=== PATIENT | male | born 1945 | race Caucasian/White ===

== ENCOUNTER 2019-01-13 07:08 | Day surgery (SDC) | payer MEDICARE, SELFPAY ==
--- NOTE | 2019-01-11 08:36 | EKG12_ITS ---
Test Reason : PRE-OP Blood Pressure : / mmHG Vent. Rate : 056 BPM Atrial Rate : 056 BPM P-R Int : 166 ms QRS Dur : 094 ms QT Int : 416 ms P-R-T Axes : 037 -11 -04 degrees QTc Int : 401 ms Sinus bradycardia with sinus arrhythmia Otherwise normal ECG Confirmed by BRAXTON OLIVAS, WILLIAN ([id number]), international editorial producer ISAURA ALVAREZ ([id number]) on 01/12/2019 9:16:28 AM Referred By: Jay Copeland Confirmed By:WILLIAN LIMON MD
[2019-01-11 08:43] LABS: Hematocrit 42.7 % (40-54); Hemoglobin 13.9 g/dl (13.0-16.5); Mean Corp Hgb Conc 32.6 g/gl (32-36); Mean Corpuscular Hgb 30.8 pg (27.0-32.0); Mean Corpuscular Volume 94.5 fL (80-94); Mean Platelet Vol. 10.8 fl (6.2-12.0); Platelet Count 194 K/mm3 (150-450); RBC Distribution Width CV 12.3 % (11.6-14.6); RBC Distribution Width SD 41.8 fl (35.1-43.9); Red Blood Count 4.52 M/mm3 (4.6-6.2); Scan Indicated on CBC? Y/N NO; White Blood Count 5.1 K/mm3 (4.4-11.0)
[2019-01-11 09:03] LABS: Hemoglobin A1c 6.9 % (4.2-6.3)
[2019-01-11 09:06] LABS: Anion Gap 6 (5-15); BUN 18 mg/dL (7-18); BUN/Creat Ratio 16.4 RATIO (10-20); Calcium,Total 9.4 mg/dL (8.5-10.1); Chloride 104 mmol/L (98-107); EST Glomerular Filtration Rate 70 mL/min (>60); Est Glom Filt Rate - Afr Amer 85 mL/min (>60); Glucose 151 mg/dL (74-106); Potassium 4.1 mmol/L (3.5-5.1); Sodium Level 139 mmol/L (136-145)
--- NOTE | 2019-01-12 17:01 | HP.PCM_ITS ---
History and Physical Date of Admission: 01/13/19 HISTORY AND PHYSICAL ? Rolando Gonzalez 1945 ? ? REFERRING PHYSICIAN: ??Jovanny Aldana MD ? CHIEF COMPLAINT: ??discuss hernia ? HPI: Rolando is a 73 year old male with a complaint of?a bulge ?and discomfort ?in his?right inguinal region. ?The patient notes discomfort in this area with lifting, coughing and especially occurred after lifting heavy steel out of a truck. ?The symptoms have improved with the fastest few days but he still notes discomfort in his right inguinal area. ? The patient notes no symptoms of bowel obstruction and denies nausea or vomiting. The patient was seen by?his?primary care physician ?who felt the patient has a hernia. ?Rolando was referred for evaluation and treatment. ? The patient is being seen by me today at the request of DrEstephania?JOVANNY ALDANA MD?for my opinion and advice regarding right inguinal hernia. ? ? PAST?MEDICAL?HISTORY PAST MEDICAL HISTORY Diagnosis Date ? Esophageal reflux ? ? Other and unspecified hyperlipidemia ? ? Unspecified asthma(493.90) ? ? ? PAST?SURGICAL?HISTORY PAST SURGICAL HISTORY Procedure Laterality Date ? HIATAL HERNIA REPAIR HX ? ? ? 2004, may ? VASECTOMY ? CURRENT?MEDICATIONS ? Current Outpatient Medications: lisinopril-hydrochlorothiazide (PRINZIDE, ZESTORETIC) 20-25 mg per tablet Take 1 tablet by mouth every morning. atorvastatin (LIPITOR) 10 mg tablet Take 1 tablet by mouth once daily. metFORMIN ER (GLUCOPHAGE XR) 500 mg 24 hr tablet Take 1 tablet by mouth twice daily. Please take 1000 at night and 500 mgs in the morning. fluticasone-salmeterol (ADVAIR DISKUS) 100-50 mcg/dose dsdv Inhale 1 Puff as instructed twice daily. Rinse mouth after use. blood sugar diagnostic ([employer]inetics TechnologiesUCH VERIO) test strip Test blood sugar(s) 2 times daily. ?Dx: Type 2 DM - Uncontrolled E11.65 ?Insulin: Yes Blood-Glucose Meter ([employer] Nation[employer]OUCH ULTRA2) monitoring kit As directed albuterol HFA (PROAIR HFA) 90 mcg/actuation inhaler USE 2 INHALATIONS EVERY 4 HOURS NEEDED INSTRUCTED glimepiride (AMARYL) 2 mg tablet Take 0.5 tablets by mouth twice daily with meals. codeine-guaiFENesin (ROBITUSSIN AC) 10-100 mg/5 mL syrup Take 5-10 mL by mouth four times daily as needed for Cough. May cause drowsiness. ibuprofen (MOTRIN) 200 mg tablet Take 1-2 tablets by mouth every 6 hours as needed for Pain (Take with food.). niacin sustained release (NIASPAN) 500 mg tablet Take 1 tablet by mouth daily at bedtime. Aspirin 81 mg tab Take 1 tablet by mouth once daily. Take with food. HIGH POTENCY B COMPLEX WITH C ORAL TAB Take one(1) tablet daily. VITAMIN C 1,000 MG ORAL TAB Take one(1) tablet daily. ? No current facility-administered medications for this visit.? ? ALLERGIES:?Seasonal/Environmental [Other] ? PERSONAL HISTORY:? SOCIAL?HISTORY Social History ??Socioeconomic History ?Marital status: ?Spouse name: Not on file ?Number of children: Not on file ?Years of education: Not on file ?Highest education level: Not on file ??Social Needs ?Financial resource strain: Not on file ?Food insecurity - worry: Not on file ?Food insecurity - inability: Not on file ?Transportation needs - medical: Not on file ?Transportation needs - non-medical: Not on file ??Occupational History ?Occupation: retired ??Tobacco Use ?Smoking status: Former Smoker ?Packs/day: 0.50 ?Years: 2.00 ?Pack years: 1 ?Types: Cigarettes ?Smokeless tobacco: Never Used ?Tobacco comment: quit years ago. ??Substance and Sexual Activity ?Alcohol use: Yes ?Comment: rare ?Drug use: No ?Sexual activity: Not on file ??Other Topics ?Concerns: ?Not on file ??Social History Narrative ?Not on file ? FAMILY HISTORY:? FAMILY?HISTORY FAMILY HISTORY Problem Relation Age of Onset ? Cancer Father ?colorectal, age 59 ? Heart Mother ?CABG, ALW, age 82 ? Hypertension Sister ? ? Hypertension Sister ? ? Stroke Mother ? ? Diabetes Sister ? ? REVIEW OF SYMPTOMS: ??The review of systems data was entered by the nurse and reviewed by me ? Nursing Notes: Raven Davidson LPN ?12/28/2018 10:36 AM ?Signed REVIEW OF SYSTEMS: ?General:???The patient denies fatigue, denies weight loss, denies weight gain, denies feeling hot, and denies feelings of cold. ?Eyes: ?The patient denies glaucoma, denies eye injury/surgery, does not wear glasses or contacts. ?Ear/Nose/Throat: ?The patient NOTES allergies, denies hayfever, denies ear infections, and denies bloody noses. ?Cardiovascular: ?The patient denies chest pain, denies heart disease, NOTES high blood pressure,denies cardiac stent, denies prior heart attack, denies irregular heart beat, NOTES high cholesterol, ?denies poor circulation, denies heart failure, other cardiac issues, denies claudication, denies cold feet, denies peripheral arterial stent. ?Respiratory: ?The patient denies tuberculosis, denies pneumonia, denies frequent cough, denies pulmonary embolism, denies shortness of breath, and denies coughing up blood. ?Gastrointestinal: ?The patient denies difficulty swallowing, denies acid reflux, denies ulcers, denies vomiting, denies jaundice/hepatitis, denies gallbladder problems, denies black or tarry stools, denies hemorrhoids, denies bleeding from rectum, denies diverticulitis, denies constipation, denies diarrhea, denies loss of stool control, and NOTES hernias. ?Kidney/Bladder: ?The patient denies kidney stones, denies urine infections, and denies bloody urine. ?Skin: ?The patient denies a history of skin cancer, denies bleedi ng/changing moles, and denies a history of skin rash. ?Neurologic: ?The patient denies a history of epilepsy/convulsions, denies headaches, denies head/spinal injuries, and denies stroke/TIA. ?Psychiatric: ?The patient denies psychiatric medications, denies depression, and denies voices, denies substance abuse. ?Endocrine: ?The patient denies thyroid disorders, NOTES diabetes, and richard es hormonal problems. ?Hematologic: ?The patient denies a history of bruising, denies bleeding, and denies anemia, denies blood clots. ?Infections: ?The patient denies a history of measles and mumps, denies rheumatic fever, and denies sexually transmitted diseases. ?Musculoskeletal: ?The patient denies back pain/injury, NOTES back problems, denies sciatica, denies knee/foot trouble, denies arthritis, or denies gout. ? ? When was patient's last Mammogram screening? N/A ? ?Last Colonoscopy: ?None ? Raven Davidson LPN ? PHYSICAL EXAMINATION: ? General: ?The patient is 73 year old male, well nourished, well hydrated in no acute distress. ?The patient is oriented to time, place, and person. ? VITALS:?Blood pressure 140/70, pulse 82, temperature 36.2 ?C (97.1 ?F), temperature source Tympanic, resp. rate 16, height 165.1 cm (5' 5), weight 74.4 kg (164 lb), SpO2 96 %.?Body mass index is 27.29 kg/m?.? ? HEENT: ?Normal cephalic, ataumatic, pupils are equally round, sclera are anicter ic, mucous membranes are moist, oropharynx is clear. ?Neck has no masses, asymmetry or lymphadenopathy. ?Thyroid is unremarkable. ? Respiratory: ?Clear to auscultation and percussion. ?Normal respiratory excursion and pattern. ? Cardiac: ?Examination is regular rate and rhythm. ? Abdominal exam: ?Soft, nontender, ?with no palpable masses. ?No hepatosplenomegaly. ?A?moderate,??non reducible right inguinal hernia, no left inguinal or umbilical hernias are noted ? Rectal exam:??exam deferred ? Extremities: ?no clubbing, cyanosis or edema. ?No adenopathy. ? Other: ? ? LABORATORY VALUES: As Noted ? RADIOLOGIC STUDIES: ?As Noted ? Assessment ? IMPRESSION:?right inguinal hernia ? PLAN: ??My plan is to perform a open right inguinal hernia repair with mesh. ?The planned surgical procedure was discussed extensively with the patient. ?The risks, benefits, anticipated outcomes and possible complications were mentioned. ?Rolando undersands that all hernia repair surgery has a chance of recurrence and/or chronic post operative pain. ?My staff has also explained the procedure in understandable terms and the patient was given the option to take printed material concerning the planned procedure. ?The patient had the opportunity to ask questions concerning the planned procedure. ?The patient freely consents to the planned procedure. ? ? ? My findings have been communicated to Dr.??JOVANNY ALDANA MD?via shared medical record. ?This note will be forwarded to Dr. JOVANNY ALDANA MD. ? Diagnoses:?No diagnosis found. ? Anticipated CPT Code:?open right inguinal hernia repair with mesh - 40877-418 ? Anticipated Anesthetic:?MAC with local ? Patient weight:??Blood pressure 140/70, pulse 82, temperature 36.2 ?C (97.1 ?F), temperature source Tympanic, resp. rate 16, height 165.1 cm (5' 5), weight 74.4 kg (164 lb), SpO2 96 %.?BMI: ?Body mass index is 27.29 kg/m?. ? Planned antibiotic:?Ancef 2gm IVPB school bus monitor to OR ? SCDs needed -?Yes ? Return to Clinic: The patient is instructed to follow-up with me?1 week post operatively. ? Jay Copeland MD
[2019-01-13] VITALS (9 sets, daily range): BP systolic 114–143; BP diastolic 75–93; PULSE 69–91; RESP 16–17; TEMP 36.2–36.9; O2SAT 92–97; BMI 26.4
--- NOTE | 2019-01-13 | IMM_PTH ---
PATIENT: HIRA ALVAREZ LOC: [facility] – [place], [place] U#:[id number] AGE/SX: 73/M ROOM: RE01/13/[address]: Dr. Jay Copeland MD : 1945 BED: DIS: 01/13/2019 SPEC #: [id number] RECD: 01/15/19 14:32 STATUS: ROXIE REQ #: [id number] SAPNA: 01/13/19 00:[address]: Jay Copeland DEPT: IMMUNOHISTOCHEMISTRY RECD BY: Abigail Valdez ENTERED: 01/15/19 14:35 SP TYPE: IMMUNO OTHR DR: Dr. Adriane Higginbotham MD Tissues: HERNIA Procedures: CK20 (add) CDX2 (add) CD44 (add) PSAP (add) CK7 (initial) PHYSICIAN & INSTITUTION [place] [id number] SPECIMEN INFORMATION: Tissue Source: Hernia sac, lipoma of cord Clinical Info: Right inguinal hernia Specimen Number: [id number] #1 CPT code: 11102, 12475 x4 METHODOLOGY: Deparaffinized sections of prefer/formalin-fixed tissue or PAP/DQ stained slides are incubated with monoclonal/polyclonal antibodies/oligonucleotide probes. Localization is made via biotin free immunoperoxidase method. Appropriate controls are performed and reacted as expected. Results on target cell population are indicated in the following table: RESULTS: ANTIBODY / CLONE RESULT Block 1 CK7 (OV-TL12/30) Positive within the glandular focus CK20 (KS20.8) Negative within the glandular focus CDX2 ([id number]) Focally positive within the glandular focus PSAP (PASE/4LJ) Positive within the glandular focus anti-CD44 (SP37) Positive within the glandular focus These tests were developed and their performance characteristics determined by [facility]. They may not have been cleared or approved by the U.S. Food and Drug Administration. The FDA has determined that such clearance or approval is not necessary. INTERPRETATION: The glandular focus is most consistent with urothelial or prostatic origin. CE:isiah 01/19/19
[2019-01-13 08:06] LABS: Bedside Glucose 154 mg/dL (70-110)
[2019-01-13] MEDS: Cefazolin 2 GM in 0.9% Normal Saline 100 ML IV (08:54)
--- NOTE | 2019-01-13 08:55 | HERN_PTH ---
PATIENT: HIRA ALVAREZ LOC: [facility] – [place] U#:[id number] AGE/SX: 73/M ROOM: RE01/13/[address]: Dr. Jay Copeland MD : 1945 BED: DIS: 01/13/2019 SPEC #: [id number] RECD: 01/13/19 15:03 STATUS: ROXIE MICHAEL #: [id number] SAPNA: 01/13/19 08:[address]: Jay Copeland DEPT: SURGICAL PATHOLOGY RECD BY: Apolinar Matthews ENTERED: 01/14/19 08:03 SP TYPE: Hernia OTHR DR: Dr. Adriane Higginbotham MD Tissues: HERNIA Procedures: Surgery Specimen Level II HEADER OPERATION: Right inguinal hernia with mesh PRE-OP DIAGNOSIS: Right inguinal hernia TISSUE SUBMITTED: Hernia sac, lipoma of cord, possible portion of lateral? MICROSCOPIC DIAGNOSIS Hernia sac, lipoma of cord, possible portion of lateral ?:. Segment of glandular tissue with smooth muscle investiture (see comment). Fibroadipose tissue consistent with hernia sac. Mature adipose tissue consistent with cord lipoma. CE:isiah 01/15/19 COMMENT Immunohistochemistry ([id number]) performed on the glandular tissue favors urothelial or prostatic origin. MICROSCOPIC DESCRIPTION Slides are reviewed. GROSS DESCRIPTION Received in fixative is one container labeled with the patient's name and designated hernia sac, lipoma of cord, possible portion of lateral?. The specimen consists of two irregular fragments. One fragment consists of a saccular structure consistent with hernia sac measuring 13 x 12 x 2 cm. Serial sections of the saccular structure does not reveal mass lesions. Sealer Operator sections from this fragment are submitted in cassette 1. The second fragment consists of an elongated fragment of yellow fatty tissue measuring 6 x 2 x 1.6 cm. Sections reveal homogenous light li cut surfaces without areas of cyst or hemorrhage. This fragment is consistent with lipoma of cord. Sealer Operator sections from this fragment are submitted in cassette 2. / AM:isiah 01/14/19 TC:1 [facility]: [id number]
[2019-01-13] MEDS: Bupivacaine Mpf 0.5% 30 ML VIAL INFILT (10:43)
--- NOTE | 2019-01-13 10:47 | PCM.OPRPT ---
Report of Operation Date of Procedure: 01/13/19 Pre-Operative Diagnosis: right inguinal hernia Post-Operative Diagnosis: large right inguinal hernia with sliding component Surgery/Procedure Performed:: open right inguinal hernia repair with large mesh plug bale opener: Judy Massey Type of Anesthesia:: Local MAC Anesthesiologist: Dimitrios Rodriges - ASA2 Specimen's removed: hernia sac with lipoma - ? bladder wall with sac Drains: corral catheter Estimated Blood Loss (mL): 50 Fluids Replaced: 800 Description of Procedure: The patient was brought to the operating suite. Sign in was performed verifying patient, site, procedure, position, and DVT prophylaxis with SCDs. Patient received 2 g Ancef antibiotic prophylaxis. Following induction of IV sedation, the patient?s right inguinal region was prepped and draped in the usual fashion. Timeout was performed verifying patient, site, position. Local anesthetic was injected at the site of the anterior superior iliac spine for a regional block. The 50-50 mixture of lidocaine and Marcaine was then injected along the planned course of the skin incision. A linear incision was made and dissection carried down to the external oblique aponeurosis. Traversing veins ligated with 3-0 Vicryl ties and divided. Local anesthetic was then injected into the inguinal canal. A clean scalpel blade was used to open the lower canal in the direction of the fibers and a Metzenbaum scissor was used to further dissect and open the canal. Care was taken to avoid injury to the ilioinguinal nerve. a large hernia sac significantly thickened was encountered and the spermatic cord. This was digitally dissected and freed up and brought into the operative field. Following this, the spermatic cord was surrounded at the level of the pubic tubercle and brought up in the operative field with a [place] drain. Dissection was continued up to the internal ring clearing the cremasteric fibers. The patient was noted to have an indirect inguinal hernia. No additional direct inguinal hernia was noted. Dissection of the hernia sac was carefully undertaken. There was noted to be thickened inflamed fat adherent to the hernia sac. As the hernia sac was identified and partially dissected, the apex of the hernia sac was opened revealing a sliding hernia. Intra-abdominal fat and with pulling on the hernia sac the base of the cecum was able to be identified. At this point, excess hernia sac was dissected and plans to reperitonealize the colon by closing the hernia sac longitudinally after part was dissected was planning to be undertaken. There was thicker tissue and fat below and somewhat lateral to the hernia sac. Part of this area had been dissected off of the sliding component and the preperitoneal fat was noted to be thickened. This was sequentially explored and dissected and divided and ligated with 3-0 Vicryl ties. With division of the last area there was noted to be shiny likely consistent with either peritoneum or bladder. A finger was inserted into the sliding hernia component and this did not protrude through the area. At this point, I had decided that I had created a bladder injury with a sliding hernia component still obviously a true indirect hernia not a direct or pantaloon type hernia. the defect was repaired in 2 layers with a 0 Vicryl suture. Once this was completed, the previously opened sliding component was closed with a running 0 Vicryl suture. this was then reduced into the preperitoneal space. A large Bard mesh plug was then placed into the indirect defect and secured with interrupted 0 Prolene sutures. Onlay mesh was secured using a Bard keyhole shaped mesh secured at the level of the pubic tubercle and run from Everett?s ligament transitioning to the ilioinguinal ligament inferiorly using an 0 Prolene suture. Next an 0 Prolene suture was used to secure the mesh to the transversus arch. The tails of the mesh were placed around the spermatic cord to create a new internal ring and the tails closed with a running 0 Prolene suture. The spermatic cord and the ilioinguinal nerve returned to its anatomic position. The external oblique was closed with a running 0 Vicryl suture. Subcutaneous fat was closed with interrupted 3-0 Vicryl suture. Skin was closed with a running 4-0 Monocryl subcuticular sutures. Steri-Strips and bandages were applied. a Corral catheter was placed to drain the urine which was slightly bloody with few small clots. This was planned to be affixed to a leg bag. The patient was brought to recovery room in stable condition. the above findings complication of bladder injury and repair were discussed with the patient and his family. Plan is for the leg bag to remain in place for at least a week and to obtain a retrograde cystogram to assure there is no leakage prior to removal of Corral catheter. Grafts/Implants Used: Bard large mesh perfex plug - [id number] exp 10/29/2022 - Complications entry into bladder dissecting indirect sac - Admit VTE Documentation VTE Present on Admission: No VTE Mechan Device Prophylaxis: SCD's VTE Pharm Prophylaxis ordered?: No
--- NOTE | 2019-01-13 10:51 | OP.PCM_ITS ---
Report of Operation Date of Procedure: 01/13/19 Pre-Operative Diagnosis: right inguinal hernia Post-Operative Diagnosis: large right inguinal hernia with sliding component Surgery/Procedure Performed:: open right inguinal hernia repair with large mesh plug bicycle courier: Judy Massey Type of Anesthesia:: Local MAC Anesthesiologist: Dimitrios Rodriges - ASA2 Specimen's removed: hernia sac with lipoma - ? bladder wall with sac Drains: corral catheter Estimated Blood Loss (mL): 50 Fluids Replaced: 800 Description of Procedure: The patient was brought to the operating suite. Sign in was performed verifying patient, site, procedure, position, and DVT prophylaxis with SCDs. Patient received 2 g Ancef antibiotic prophylaxis. Following induction of IV sedation, the patient?s right inguinal region was prepped and draped in the usual fashion. Timeout was performed verifying pat ient, site, position. Local anesthetic was injected at the site of the anterior superior iliac spine for a regional block. The 50-50 mixture of lidocaine and Marcaine was then injected along the planned course of the skin incision. A linear incision was made and dissection carried down to the external oblique aponeurosis. Traversing veins ligated with 3-0 Vicryl ties and divided. Local anesthetic was then injected into the inguinal canal. A clean scalpel blade was used to open the lower canal in the direction of the fibers and a Metzenbaum scissor was used to further dissect and open the canal. Care was taken to avoid injury to the ilioinguinal nerve. a large hernia sac significantly thickened was encountered and the spermatic cord. This was digitally dissected and freed up and brought into the operative field. Following this, the spermatic cord was surrounded at the level of the pubic tubercle and brought up in the operative field with a [place] drain. Dissection was continued up to the internal ring clearing the cremasteric fibers. The patient was noted to have an indirect inguinal hernia. No additional direct inguinal hernia was noted. Dissection of the hernia sac was carefully undertaken. There was noted to be thickened inflamed fat adherent to the hernia sac. As the hernia sac was identified and partially dissected, the apex of the hernia sac was opened revealing a sliding hernia. Intra-abdominal fat and with pulling on the hernia sac the base of the cecum was able to be identified. At this point, excess hernia sac was dissected and plans to reperitonealize the colon by closing the hernia sac longitudinally after part was dissected was planning to be undertaken. There was thicker tissue and fat below and somewhat lateral to the hernia sac. Part of this area had been dissected off of the sliding component and the preperitoneal fat was noted to be thickened. This was sequentially explored and dissected and divided and ligated with 3-0 Vicryl ties. With division of the last area there was noted to be shiny likely consistent with either peritoneum or bladder. A finger was inserted into the sliding hernia component and this did not protrude through the area. At this point, I had decided that I had created a bladder injury with a sliding hernia component still obviously a true indirect hernia not a direct or pantaloon type hernia. the defect was repaired in 2 layers with a 0 Vicryl suture. Once this was completed, the previously opened sliding component was closed with a running 0 Vicryl suture. this was then reduced into the preperitoneal space. A large Bard mesh plug was then placed into the indirect defect and secured with interrupted 0 Prolene sutures. Onlay mesh was secured using a Bard keyhole shaped mesh secured at the level of the pubic tubercle and run from Everett?s ligament transitioning to the ilioinguinal ligament inferiorly using an 0 Prolene suture. Next an 0 Prolene suture was used to secure the mesh to the transversus arch. The tails of the mesh were placed around the spermatic cord to create a new internal ring and the tails closed with a running 0 Prolene suture. The spermatic cord and the i lioinguinal nerve returned to its anatomic position. The external oblique was closed with a running 0 Vicryl suture. Subcutaneous fat was closed with interrupted 3-0 Vicryl suture. Skin was closed with a running 4-0 Monocryl subcuticular sutures. Steri-Strips and bandages were applied. a Corral catheter was placed to drain the urine which was slightly bloody with few small clots. This was planned to be affixed to a leg bag. The patient was brought to recovery room in stable condition. the above findings complication of bladder injury and repair were discussed with the patient and his family. Plan is for the leg bag to remain in place for at least a week and to obtain a retrograde cystogram to assure there is no leakage prior to removal of Corral catheter. Grafts/Implants Used: Bard large mesh perfex plug - [id number] exp 10/29/2022 - Complications entry into bladder dissecting indirect sac - Admit VTE Documentation VTE Present on Admission: No VTE Mechan Device Prophylaxis: SCD's VTE Pharm Prophylaxis ordered?: No
--- NOTE | 2019-01-13 10:51 | PCM.DC.HER ---
Discharge Diet: Light diet - advance as tolerated Discharge Activity: Return to Normal Activity, May Drive - when you are no longer taking narcotic pain medications., May Shower - with the bandage in place 1-2 days after surgery. Lifting Restrictions: 20 pounds for 8 weeks. Additional Activity Instructions:: Climbing stairs is fine, walking is encouraged. Sitting in bed may be uncomfortable. Sitting up using your lateral muscles (sitting up sideways) is usually more comfortable. Do not drive, work heavy equipment of sign legal documents for 24 hours. If your hernia repair was an ingunial repair, you may have scrotal swelling, an ice pack and/or athletic support can provide more comfort. Pain medications may cause nausea, you should typically eat light foods as you take your pain medications. Pain medications may also cause constipation. If you have difficulty with this, discuss with your doctor. Call your doctor if your incision/area has: Continuous Slow Oozing, Sudden Increased Bleeding, Increased Pain/ Swelling, Increased Redness, Foul Smelling Discharge Call your doctor if you observe: Fever of 101 or Higher Suture Line Care: Avoid Pulling/Pushing, Avoid Pinching/Bending Additional Dressing/Incision Instructions:: Leave the operative bandage on for 2-3 days. When you remove the bandage, leave the steri-strips on place until your follow up appointment or they fall off. Additional Instructions: leave corral catheter to leg bag. Allergies/Adverse Reactions: Allergies No Known Allergies Allergy (Verified 01/06/19 13:59) Medications to take at Discharge Atorvastatin Calcium [Lipitor] 10 mg PO QHS 08/12/15 Lisinopril/Hydrochlorothiazide [Zestoretic 20-25 mg Tablet] 1 each PO DAILY 08/12/15 Albuterol IH (ProAir) [Proair Hfa] 2 puff INHALATION Q4H PRN PRN 01/06/19 Fluticasone/Salmeterol [Advair 100-50 Diskus] 1 each IH BID 01/06/19 Glimepiride [Amaryl] 1 mg PO DAILY@0800 01/06/19 Metformin HCl [Glucophage] 500 mg PO BIDCM 01/06/19 Oxycodone HCl/Acetaminophen [Percocet 5/325] 1 tab PO Q6H PRN PRN 7 Days #10 tab 05/15/19 The following prescriptions were given: Oxycodone HCl/Acetaminophen [Percocet 5/325] 1 tab PO Q6H PRN PRN 7 Days #10 tab PRN Reason: Pain Orders to be completed after discharge: 12 Lead EKG [[facility]] Time Frame: 01/07/19, Facility: [facility], Location: Cardiovascular Services Hemoglobin A1c Time Frame: 01/07/19, Location: Laboratory Basic Metabolic Profile (BMP) Time Frame: 01/07/19, Location: Laboratory CBC-Complete Blood Cnt No Diff Time Frame: 01/07/19, Location: Laboratory Primary Care Physician: Adriane Higginbotham MD [Primary Care Provider] - Test Results: Test results from this visit will be discussed in further detail at your follow-up appointment, if applicable. Please Follow Up With: Jay Copeland MD - [phone] When: Plan to have a follow up appointment in 7 days. Call to schedule.
== END 2019-01-13 14:20 | disposition home or self-care (01) ==
LOC: SDC 07:08 → AC 07:09
PROVIDERS: Family Provider Internal Medicine; PCP Internal Medicine; Referring Provider Surgery; Visit Provider Surgery
PROC: (CPT 49525; principal; 2019-01-13 08:40)
DX: K40.90 Unilateral inguinal hernia, without obstruction or gangrene, not specified as recurrent (principal); D17.6 Benign lipomatous neoplasm of spermatic cord; D64.9 Anemia, unspecified; E11.9 Type 2 diabetes mellitus without complications; I10 Essential (primary) hypertension; R01.1 Cardiac murmur, unspecified; J45.909 Unspecified asthma, uncomplicated; K21.9 Gastro-esophageal reflux disease without esophagitis; E78.5 Hyperlipidemia, unspecified; Z79.82 Long term (current) use of aspirin; Z79.4 Long term (current) use of insulin; Z79.84 Long term (current) use of oral hypoglycemic drugs; Z79.899 Other long term (current) drug therapy; Z87.891 Personal history of nicotine dependence
CPT/HCPCS: 00830; 49525; 36415; 80048; 82962; 83036; 85027; 88302; 88341; 88342; 93005; J7120; C1781; J2405

== ENCOUNTER → 2019-01-20 09:52 | Outpatient (CLI) | payer MEDICARE, SELFPAY ==
[2019-01-13 07:37] VITALS: BMI 26.4
--- NOTE | 2019-01-20 09:57 | RAD_ITS ---
CLINICAL HISTORY: Male, 73 years old. Follow-up for bladder injury. PROCEDURE: Retrograde cystogram. FLUOROSCOPY TIME (if supplied): (0:42) minutes/seconds 150 mL of contrast installed into the bladder in a retrograde fashion through . The radiologist installed the contrast into the bladder. TECHNIQUE: (All elements of maximal sterile barrier technique followed, including US elements as applicable) A Lindsay catheter is seen within the bladder. There is minimal degree of vertical trabeculation of the dome of the bladder. There is no evidence of leakage. RAD/Urethrocystography Retrograde IMPRESSION: No evidence of bladder leakage. Mild degree of trabeculation along the superior aspect of the bladder. Electronically Signed: Benson Bailey, at 15:28 EDT , Service support ,
--- NOTE | 2019-01-20 11:15 | NURSING ---
LEG BAG ATTACHED AFTER CYSTOGRAM PER PT REQUEST. PT VERBALIZES UNDERSTANDING OF HOW LEG BAG AND VALVE WORK.
== END ==
PROVIDERS: Family Provider Internal Medicine; PCP Internal Medicine; Referring Provider Surgery; Visit Provider Surgery
DX: S37.20XA Unspecified injury of bladder, initial encounter (principal)
CPT/HCPCS: 51610; 74450; Q9965

== ENCOUNTER 2021-10-08 16:29 | Emergency (ER) | payer MEDICARE, SELFPAY ==
[2021-10-08 16:41] VITALS: BP 178/76; PULSE 82; RESP 18; TEMP 36.5; O2SAT 96; BMI 25.7
[2021-10-08 18:01] VITALS: RESP 18; O2SAT 99
--- NOTE | 2021-10-08 18:11 | CT_ITS ---
EXAM: CT ABDOMEN AND PELVIS WITHOUT INTRAVENOUS CONTRAST : 1945 CLINICAL INDICATION: right flank pain TECHNIQUE: Helically acquired images were obtained of the abdomen and pelvis without intravenous contrast. This CT exam was performed using one or more of the following dose reduction techniques: automated exposure control, adjustment of the mA and/or kV according to patient size, and/or use of iterative reconstruction technique. This report was created using [employer] report generation technology. COMPARISON: 08/12/2015 FINDINGS: LOWER THORAX: See below. ABDOMEN: LIVER: Unremarkable. Homogeneous. GALLBLADDER AND BILE DUCTS: Unremarkable. No calcified gallstones. No gallbladder distention or wall edema. No intra- or extrahepatic biliary ductal dilation. PANCREAS: Unremarkable. No focal cystic mass. SPLEEN: Unremarkable. Normal size without focal cystic or solid mass. ADRENALS: Unremarkable. No nodules. KIDNEYS AND URETERS: Unremarkable. Normal renal size and position. No hydronephrosis. STOMACH AND BOWEL: There are surgical clips again seen at the gastroesophageal junction. There is sigmoid diverticulosis with no evidence of diverticulitis. No stomach or bowel distention. PELVIS: APPENDIX: No evidence of acute appendicitis. BLADDER: Unremarkable. REPRODUCTIVE: Unremarkable as visualized. No mass. ABDOMEN and PELVIS: INTRAPERITONEAL SPACE: Unremarkable. No ascites or other fluid collection. No free air. BONES/JOINTS: Unremarkable. No suspicious lytic or blastic abnormality. SOFT TISSUES: Unremarkable. No discrete abdominal or pelvic wall hernia. VASCULATURE: Unremarkable. Abdominal aorta is non-dilated. LYMPH NODES: Unremarkable. No enlarged lymph nodes. CT/Abdomen/Pelvis without Cont IMPRESSION: There is sigmoid diverticulosis with no evidence of diverticulitis. There are no acute abnormalities. There has been no change from the reference exam. Individualized dose optimization techniques were used for this CT. at 1855 Reported and signed by: Andrea Layne MD Electronically Signed: Andrea Layne MD at 18:54 EST ,
--- NOTE | 2021-10-08 18:12 | EDS_ITS ---
HPI History of Present Illness Chief Complaint: Abd Pain Informant: patient and spouse/S.O. Narrative Narrative: Patient complains of right foot flank and back pain. He states it started when he was shoveling snow on Friday. It has been more in the front more than the back at different times but mostly has settled to the right paraspinal area. He states he always has back pain and this kind of seems similar. He does have a little bit of radiation occasionally to the anterior lateral portion of the upper right leg above the knee. He is not having that right now. He has never had surgery for his back though. Motion definitely makes this worse and rest makes it better. He is eating and drinking without difficulty. He had a cheeseburger and milkshake today. No change in bowel habits. No diarrhea or blood. No urinary symptoms. No history of kidney stones. No fevers or chills. Other than the right\flank area pain he feels fine. Patient states he took Motrin and yesterday it helped the pain a lot. Today he took about 4 or 5 may be more. It did not help the pain but it gave him an upset stomach so he does have some mild nausea that is getting better. [facility] Medical History Asthma Diabetes mellitus High blood pressure High cholesterol Home Medications atorvastatin 10 mg PO QHS 08/12/15 [History Last Taken Unknown] lisinopril-hydrochlorothiazide [Zestoretic] 1 ea PO DAILY 08/12/15 [History Last Taken Unknown] albuterol sulfate [ProAir HFA] 2 puff INHALATION Q4H PRN PRN 01/06/19 [History Last Taken 01/13/19] fluticasone propion-salmeterol [Advair Diskus] 1 ea IH BID 01/06/19 [History Last Taken 01/13/19] glimepiride 1 mg PO DAILY@0800 01/06/19 [History Last Taken Unknown] metformin 500 mg PO BIDCM 01/06/19 [History Last Taken Unknown] oxycodone-acetaminophen [Percocet] 1 tab PO Q6H PRN 3 Days #10 tab 10/08/21 [Rx Last Taken Unknown] Allergy/AdvReac Type Severity Reaction Status Date / Time No Known Allergies Allergy Verified 10/08/21 16:44 Social History Smoking Status: Former smoker ROS ROS ED Constitutional Constitutional ED: Denies chills or fever(s) ENT ENT ED: Denies rhinorrhea or sore throat Cardiovascular Cardiovascular: Denies chest pain or palpitations Respiratory/Chest Respiratory/Chest: Denies cough or dyspnea Gastrointestinal Gastrointestinal: Reports other Details: See history of present illness ; Denies abdominal pain, constipation, diarrhea, melena, nausea or vomiting Genitourinary Genitourinary ED: Denies dysuria, hematuria or urinary frequency Musculoskeletal Musculoskeletal: Reports back pain; Denies arthralgias, myalgias or neck pain Integumentary Denies rash Neurologic Neurologic: Denies headache(s), paresthesias or weakness Endocrine Endocrinology: Denies polydipsia or polyuria Allergic/Immunologic Allergic/Immunologic ED: Denies mouth swelling or urticaria EXAM Physical Exam Const Vital Signs: 10/08/21 16:41 10/08/21 18:01 Temperature 97.7 F L Temperature Source Temporal Pulse Rate 82 Respiratory Rate 18 18 Blood Pressure 178/76 H Blood Pressure Mean 110 Pulse Ox 96 99 Oxygen Delivery Method Room Air Room Air Positive well nourished and well developed General Appearance ED: well developed and NAD; Negative for cyanotic or diaphoretic HEENT Reports moist mucous membranes Eyes General Eye ED: Negative for pale conjunctiva or scleral icterus Neck no JVD Chest Wall inspection of chest normal Resp normal respiratory effort and clear to auscultation bilaterally Effort and Inspection: Negative for pain with movement Auscultation: Negative for rales, rhonchi or wheezes Cardio regular rate GI normal to inspection, nondistended, normoactive bowel sounds, non-tender and non-distended GI Narrative: Abdomen shows midline scar from prior hiatal hernia surgery. But to palpation auscultation is completely benign. There is also no tenderness down in the inguinal region. No hernia. No testicular or groin area tenderness. Palpation: soft Back/Spine Back/Spine Narrative: Patient does have some diffuse right paraspinal tenderness Extremity normal to inspection General Extremety ED: Negative for tenderness Neuro oriented x3 and no sensory deficits noted Sensorium / Orientation: alert; Negative for orientation impaired Sensory Exam: No sensory level loss detected Motor Exam: strength 5/5 throughout; Negative for general weakness Psych mental status grossly normal Skin no rashes or lesions noted and no wounds MDM MDM MDM Narrative Medical decision making narrative: Patient CT scan shows no sign of acute process. His online His history and exam is most consistent with myofascial strain. We will get him some pain meds short-term. His online prescribing report shows no controlled substances. We discussed reasons to return. We also discussed ice and rest. They wanted to follow-up with chiropractor. I think he should give this a little bit of rest first and then they could certainly consider that for some gentle massage. Radiography Diagnostic Testing: Clinical Impression(s) from Imaging Studies Abdomen/Pelvis CT 10/08/21 18:11 IMPRESSION: There is sigmoid diverticulosis with no evidence of diverticulitis. There are no acute abnormalities. There has been no change from the reference exam. Individualized dose optimization techniques were used for this CT. at 1855 Reported and signed by: Andrea Layne MD Electronically Signed: Andrea Layne MD at 18:54 EST , Discharge Plan Triage Chief Complaint: Abd Pain ED Provider: Zhou Trejo Dx/Rx/DC Orders Clinical Impression: Acute lumbar myofascial strain Instructions: ED Back Sprain/Strain Prescriptions: New oxycodone-acetaminophen [Percocet] 5-325 mg tablet 1 tab PO Q6H PRN (Reason: pain) 3 Days Qty: 10 RF: 0 No Action atorvastatin 10 MG tablet 10 mg PO QHS RF: 0 lisinopril-hydrochlorothiazide [Zestoretic] 1 EACH tablet 1 ea PO DAILY RF: 0 metformin 500 MG tablet 500 mg PO BIDCM RF: 0 fluticasone propion-salmeterol [Advair Diskus] 1 EACH blister with device 1 ea IH BID RF: 0 albuterol sulfate [ProAir HFA] 1 PUFF inhaler 2 puff inhalation Q4H PRN PRN (Reason: Asthma) RF: 0 glimepiride 2 MG tablet 1 mg PO DAILY@0800 RF: 0 Primary Care Provider: Adriane Higginbotham Referrals: Adriane Higginbotham MD [Primary Care Provider] - 3-5 Days Disposition Disposition: Home, Self Care
[2021-10-08] MEDS: oxyCODONE 5 MG Tablet PO (18:16)
[2021-10-08] MEDS: Ondansetron ODT 4 MG Tablet PO (18:17)
== END 2021-10-08 20:03 | disposition home or self-care (01) ==
PROVIDERS: Emergency Provider Emergency Medicine; PCP Internal Medicine; Visit Provider Emergency Medicine
DX: S39.012A Strain of muscle, fascia and tendon of lower back, initial encounter (principal); E11.9 Type 2 diabetes mellitus without complications; X58.XXXA Exposure to other specified factors, initial encounter; Y93.89 Activity, other specified; E78.00 Pure hypercholesterolemia, unspecified; Z79.84 Long term (current) use of oral hypoglycemic drugs; Z79.899 Other long term (current) drug therapy; Z87.891 Personal history of nicotine dependence
CPT/HCPCS: 74176; 99284

== ENCOUNTER 2021-10-17 05:58 | Emergency (ER) | payer MEDICARE, SELFPAY ==
[2021-10-17 05:58] VITALS: O2SAT 98
[2021-10-17 05:59] VITALS: BP 147/87; PULSE 78; RESP 17; TEMP 36.6; O2SAT 98; BMI 27.6
--- NOTE | 2021-10-17 06:14 | EDS_ITS ---
HPI History of Present Illness Chief Complaint: Back Informant: patient, spouse/S.O. and EMS Onset/Context/Timing Onset: Weeks (1.5) Context: Sudden Onset Injury: lifting and bending Timing: Continuous Quality: Aching Location: Lumbar and Buttock (R) Current Severity: Severe Maximum Severity: Severe Worsened by: improves with Movement, Ambulation and Bending Relieved by: Remaining Still and Medications (Percocet but he ran out. Fentanyl provided by EMS but wearing off.) Associated Symptoms Associated Symptoms: Numbness (Mild in anterior proximal right thigh only, nothing more distal), Radiation to Right Leg (A little in the proximal right thigh, occasionally down the knee but nothing more distal) and Constipation (When taking narcotics but resolved now); Negative for Fever, Abdominal Pain, Dysuria, Urinary Retention, Urinary Incontinence and Fecal Incontinence Narrative Narrative: Patient was seen here just over a week ago for the same symptoms, but closer to the injury. Initially he was shoveling snow and he felt pain in his right low back going into his buttock. 3 days after that, he was lifting a heavy box and he exacerbated the initial injury to a significant degree and was seen here in the emergency department. He had a CT scan, it showed no acute abnormalities of his abdomen, pelvis, spine. For the last week, he took the oxycodone that he was prescribed, and they were helping but he ran out and has been taking Tylenol and ibuprofen ever since, and they are not helping at all now. States he had a difficult night with pain, not able to sleep, he denies any new symptoms, but presents to the ER by EMS because of this pain that he is having trouble dealing with. He denies any bowel or bladder dysfunction or saddle anesthesia. No symptoms radiating below the knees. Pain worse with movement better with rest. Has not yet been able to follow-up with PCP although he has an appointment for later today. [facility] Medical History Asthma Diabetes mellitus High blood pressure High cholesterol Home Medications atorvastatin 10 mg PO QHS 08/12/15 [History Last Taken Unknown] lisinopril-hydrochlorothiazide [Zestoretic] 1 ea PO DAILY 08/12/15 [History Last Taken Unknown] albuterol sulfate [ProAir HFA] 2 puff INHALATION Q4H PRN PRN 05/08/19 [History Last Taken 01/13/19] fluticasone propion-salmeterol [Advair Diskus] 1 ea IH BID 01/06/19 [History Last Taken 01/13/19] glimepiride 1 mg PO DAILY@0800 01/06/19 [History Last Taken Unknown] metformin 500 mg PO BIDCM 01/06/19 [History Last Taken Unknown] oxycodone-acetaminophen [Percocet] 1 tab PO Q6H PRN 3 Days #10 tab 10/08/21 [Rx Last Taken Unknown] orphenadrine citrate 100 mg PO Q12H PRN #14 tab 10/17/21 [Rx Last Taken Unknown] oxycodone-acetaminophen 1 tab PO Q6H PRN PRN 5 Days #20 tablet 10/17/21 [Rx Last Taken Unknown] Allergy/AdvReac Type Severity Reaction Status Date / Time No Known Allergies Allergy Verified 10/17/21 06:02 Social History Smoking Status: Former smoker ROS ROS ED Constitutional Constitutional ED: Denies chills or fever(s) Gastrointestinal Gastrointestinal: Reports as per HPI and constipation; Denies abdominal pain, fecal incontinence, nausea or vomiting Genitourinary Genitourinary ED: Reports other Details: no urinary retention ; Denies abdominal discomfort or urinary incontinence Musculoskeletal Musculoskeletal: Reports as per HPI and back pain; Denies neck pain Integumentary Denies rash or wounds Neurologic Neurologic: Denies headache(s), paresthesias or weakness EXAM Physical Exam Const Vital Signs: 10/17/21 05:58 10/17/21 05:59 Temperature 97.8 F Temperature Source Temporal Pulse Rate 78 Respiratory Rate 17 Blood Pressure 147/87 H Blood Pressure Mean 107 Pulse Ox 98 98 Oxygen Delivery Method Room Air Room Air Positive well nourished and well developed General Appearance ED: well developed and NAD HEENT Negative for trauma or tenderness Eyes PERRL and EOMs intact bilaterally Neck full ROM and supple GI normal to inspection, nondistended, normoactive bowel sounds, soft to palpation and non-tender Back/Spine normal to inspection Lumbar Spine / Lower Back: ROM limited, paraspinal muscle tenderness right L4 and L5, paraspinal muscle spasm and straight leg raise negative bilaterally Extremity normal to inspection, full ROM and no pedal edema Neuro oriented x3 and no sensory deficits noted Sensorium / Orientation: alert Motor Exam: strength 5/5 throughout and clonus absent Deep Tendon Reflexes: Rt Patellar (L4): 2+, Lt Patellar (L4): 2+, Rt Ankle (S1): 2+ and Lt Ankle (S1): 2+ Deep Tendon Reflexes Back: Rt Patellar (L4): 2+, Lt Patellar (L4): 2+, Rt Ankle (S1): 2+ and Lt Ankle (S1): 2+ Plantar Reflex: Downgoing: bilateral Psych mental status grossly normal and thought process normal Skin no rashes or lesions noted and no wounds MDM MDM MDM Narrative Medical decision making narrative: Patient is neurologically intact, and does not have any symptoms of true sciatica, neuropathic pain, or cauda equina syndrome. He already had a CT and did not have any other injury or progression of symptoms since then and I do not think he needs any other emergent imaging at this time. I discussed all this with him, along with the fact that unfortunately there is not a quick fix for this, but I still recommend follow-up with his PCP, he may benefit from physical therapy, massage, and/your pain medications which I am happy to prescribe him. We also discussed the fact that prescription pain medications will likely cause GI symptoms to a varying degree such as the constipation that he experienced before. He already was taking a stool softener with it, encourage that, they asked for prescription for nausea m edicine which is provided as well. He is improved here after morphine and Zofran. With the muscle spasms he was having on exam, perhaps he will benefit from a muscle relaxer to, will prescribe him Norflex so as not to be as sedating given his age. Discharge Plan Triage Chief Complaint: Back ED Provider: John Jones Dx/Rx/DC Orders Clinical Impression: Acute lumbosacral myofascial strain Instructions: ED Back Pain (Acute or Chronic) Prescriptions: New oxycodone-acetaminophen [oxycodone-acetaminophen] 1 TABLET tablet 1 tab PO Q6H PRN PRN (Reason: severe pain (scale score 7-10)) 5 Days Qty: 20 RF: 0 orphenadrine citrate 100 mg tablet extended release 100 mg PO Q12H PRN (Reason: muscle spasm) Qty: 14 RF: 0 No Action atorvastatin 10 MG tablet 10 mg PO QHS RF: 0 lisinopril-hydrochlorothiazide [Zestoretic] 1 EACH tablet 1 ea PO DAILY RF: 0 metformin 500 MG tablet 500 mg PO BIDCM RF: 0 fluticasone propion-salmeterol [Advair Diskus] 1 EACH blister with device 1 ea IH BID RF: 0 albuterol sulfate [ProAir HFA] 1 PUFF inhaler 2 puff inhalation Q4H PRN PRN (Reason: Asthma) RF: 0 glimepiride 2 MG tablet 1 mg PO DAILY@0800 RF: 0 oxycodone-acetaminophen [Percocet] 5-325 mg tablet 1 tab PO Q6H PRN (Reason: pain) 3 Days Qty: 10 RF: 0 Primary Care Provider: Adriane Higginbotham Referrals: Adriane Higginbotham MD [Primary Care Provider] - Keep [facility] appointment Disposition Disposition: Home, Self Care
[2021-10-17] MEDS: Ondansetron 4 MG/2 ML Vial IV (06:29)
[2021-10-17] MEDS: Morphine 4 MG/ML Syringe IV (06:29)
== END 2021-10-17 07:44 | disposition home or self-care (01) ==
LOC: ED 06:31
PROVIDERS: Emergency Provider Emergency Medicine; PCP Internal Medicine; Visit Provider Emergency Medicine
DX: S39.012A Strain of muscle, fascia and tendon of lower back, initial encounter (principal); E11.9 Type 2 diabetes mellitus without complications; X50.0XXA Overexertion from strenuous movement or load, initial encounter; Y93.H1 Activity, digging, shoveling and raking; E78.00 Pure hypercholesterolemia, unspecified; I10 Essential (primary) hypertension; J45.909 Unspecified asthma, uncomplicated; Z79.84 Long term (current) use of oral hypoglycemic drugs; Z79.51 Long term (current) use of inhaled steroids; Z79.899 Other long term (current) drug therapy; Z87.891 Personal history of nicotine dependence
CPT/HCPCS: 96374; 96375; 99284; J2405

== ENCOUNTER 2022-03-28 10:24 | Inpatient (IN) | payer MEDICARE, SELFPAY ==
[2022-03-28] VITALS (13 sets, daily range): BP systolic 114–128; BP diastolic 60–93; PULSE 83–111; RESP 14–19; TEMP 36.8–39.3; O2SAT 87–98; BMI 26.9; BMI 25.9
--- NOTE | 2022-03-28 10:45 | ED.RN ---
Patient arrives initially at 94% on room air, after talking and moving in bed patient sustained 87-88% on room air. Oxygen placed via NC at 2lpm, oxygen saturations increased to 95% and above.
--- NOTE | 2022-03-28 10:47 | CT_ITS ---
STUDY: CT BRAIN WITHOUT CONTRAST REASON FOR EXAM: Male, 76 years old. Vertigo with slurred speech and head trauma RADIATION DOSAGE (If Supplied By Facility): CTDIvol = ( 44.99 ) mGy, DLP = ( 779.24 ) mGycm TECHNIQUE: Transaxial CT imaging of the brain was performed without administration of intravenous contrast material. Individualized dose optimization techniques were used for this CT. COMPARISON: No relevant priors. FINDINGS: Normal soft tissue structures. Normal calvarium. There is mild cerebral atrophy with widening of the extra-axial spaces and ventricular dilatation. Normal white matter tracts of the cerebral hemispheres. Normal basal ganglia and thalami. Normal brainstem. There is mild cerebellar atrophy. There is no intracranial hemorrhage. There are no findings of an acute ischemic infarction. Atherosclerotic calcification of the cavernous portions of the internal carotid arteries bilaterally. Atherosclerotic plaque formation of the vertebral arteries. Prominent soft tissues in the posterior nasal fossa extending into the nasopharynx. Clinical correlation recommended. CT/Brain/Head without Contrast IMPRESSION: Chronic involutional changes of the brain. Soft tissue prominence in the posterior right nasal fossa extending into the nasopharynx. Clinical correlation is recommended. Electronically Signed: Benson Bailey MD at 12:52 EDT ,
--- NOTE | 2022-03-28 10:48 | EKG12_ITS ---
Test Reason : Fall Blood Pressure : / mmHG Vent. Rate : 098 BPM Atrial Rate : 098 BPM P-R Int : 164 ms QRS Dur : 094 ms QT Int : 324 ms P-R-T Axes : 030 -05 017 degrees QTc Int : 413 ms Normal sinus rhythm Normal ECG Confirmed by JESSICA OLIVAS, ENA ([id number]), clinical editor JOHNNY KIDD ([id number]) on 04/01/2022 11:21:25 AM Referred By: Hi Confirmed By:MARIO LOPEZ MD
[2022-03-28] MEDS: 0.9% Normal Saline 1,000 ML 150 ML IV (11:20)
[2022-03-28] MEDS: Acetaminophen 325 MG Tablet 650 MG PO (11:20)
--- NOTE | 2022-03-28 11:21 | EX.ED.DYSGE1 ---
HPI History of Present Illness Chief Complaint: Fall Detail of Chief Complaint: Fall after getting out of the car to go to urgent care Informant: patient and spouse/S.O. Onset/Context/Timing Onset: Hours (Dizziness with slurred speech and fall) and Days (Upper respiratory infectious symptoms and tested positive COVID 03/25) Context: Gradual Onset Timing: Continuous (Respiratory symptoms have been continuous) and Intermittent (Vertigo with slurred speech transient, approximately 5 minutes) Quality: Upper respiratory symptoms and vertigo Location: Respiratory and contusion above left brow Current Severity: Mild Maximum Severity: Moderate Worsened by: Dyspnea on exertion, vertigo occurred after exiting the vehicle Relieved by: Nothing Associated Symptoms Associated Symptoms: Fever, chills, cough, hypoxia PFSH PFSH Medical History Asthma Diabetes mellitus High blood pressure High cholesterol Home Medications atorvastatin 10 mg tablet 10 mg PO QHS 08/12/15 [History Last Taken Unknown] lisinopril 20 mg-hydrochlorothiazide 25 mg tablet (Zestoretic) 1 ea PO DAILY 08/12/15 [History Last Taken Unknown] albuterol sulfate 90 mcg/actuation aerosol inhaler (ProAir HFA) 2 puff inhalation Q4H PRN PRN Asthma 01/06/19 [History Last Taken 01/13/19] fluticasone 100 mcg-salmeterol 50 mcg/dose blistr powdr for inhalation (Advair Diskus) 1 ea IH BID 01/06/19 [History Last Taken 01/13/19] glimepiride 2 mg tablet 1 mg PO DAILY@0800 01/06/19 [History Last Taken Unknown] metformin 500 mg tablet 500 mg PO BIDCM 01/06/19 [History Last Taken Unknown] oxycodone-acetaminophen 5 mg-325 mg tablet (Percocet) 1 tab PO Q6H PRN pain 3 days #10 tabs 10/08/21 [Rx Last Taken Unknown] orphenadrine citrate 100 mg tablet,extended release 100 mg PO Q12H PRN muscle spasm #14 tabs 10/17/21 [Rx Last Taken Unknown] oxycodone-acetaminophen 5 mg-325 mg tablet 1 tab PO Q6H PRN PRN severe pain (scale score 7-10) 5 days #20 TABLETS 10/17/21 [Rx Last Taken Unknown] Allergy/AdvReac Type Severity Reaction Status Date / Time No Known Allergies Allergy Verified 10/17/21 06:02 Social History Smoking Status: Former smoker EXAM Physical Exam Const Vital Signs: 03/28/22 10:26 03/28/22 10:30 03/28/22 10:32 Temperature 102.7 F H 102.7 F H Temperature Source Oral Oral Pulse Rate 108 H 111 H Respiratory Rate 18 14 Respiratory Pattern Normal Blood Pressure 115/93 H 128/72 H Blood Pressure Mean 100 90 Pulse Ox 94 94 Oxygen Delivery Method Room Air Room Air Oxygen Flow Rate (L/min) 03/28/22 10:42 03/28/22 10:42 03/28/22 10:55 Temperature Temperature Source Pulse Rate Respiratory Rate Respiratory Pattern Blood Pressure Blood Pressure Mean Pulse Ox 87 94 97 Oxygen Delivery Method Room Air Nasal Cannula Nasal Cannula Oxygen Flow Rate (L/min) 2 2 MDM MDM MDM Narrative Medical decision making narrative: Patient presents after fall. Suspect this is due to the fact that he was hypoxic. Concern patient may have had a TIA since reports slurred speech and he describes vertigo. This lasted less than 5 minutes. This occurred prior to the fall and the cause of his fall. Patient's COVID test is positive. Since patient is requiring oxygen and is hemodynamically stable we will contact hospitalist for admission to PCU for the respiratory failure and rule out TIA. Lab Data Attestation: I reviewed the patient's lab results. Lab results narrative: Patient is neutropenic consistent with COVID. Comprehensive metabolic panel reveals slight elevation of glucose of 148. Labs: Laboratory Results - last 24 hr 03/28/22 03/28/22 11:20 11:20 WBC 3.9 L RBC 3.84 L Hgb 12.2 L Hct 36.1 L MCV 94.0 MCH 31.8 MCHC 33.8 RDW Std Deviation 42.5 RDW Coeff of Joellen 12.2 Plt Count 160 MPV 11.0 Immature Gran % (Auto) 0.300 Neut % (Auto) 62.6 Lymph % (Auto) 10.5 L [place] % (Auto) 26.0 H Eos % (Auto) 0.3 Baso % (Auto) 0.3 Absolute Neuts (auto) 2.5 Absolute Lymphs (auto) 0.41 L Nucleated RBC % 0 Differential Comment COMMENT Diff Path Review May foll Sodium 134 L Potassium 3.9 Chloride 100 Carbon Dioxide 28.0 Anion Gap 6 BUN 12 Creatinine 1.14 Estim Creat Clear Calc 49.45 Est GFR (MDRD) Af Amer 81 Est GFR (MDRD) Non-Af 67 BUN/Creatinine Ratio 10.5 Glucose 148 H Calcium 9.1 Total Bilirubin 0.40 AST 40 H ALT 56 Alkaline Phosphatase 39 L Total Protein 6.7 Albumin 3.6 Globulin 3.1 Albumin/Globulin Ratio 1.2 Radiography Chest X-Ray - ED: 1 View (Single view portable chest x-ray independently interpreted by me at 1228 reveals no acute process. There is minor chronic changes and limited in story volume. Cardiac silhouette size unremarkable. Osseous trucks unremarkable. Perihilar area is unremarkable.) Diagnostic Testing: CT of the head independently reviewed by me as negative for subdural, epidural, traumatic subarachnoid or intraparenchymal bleed. There is no evidence of fluid in the sinuses either. Awaiting formal read by radiologist. EKG Initial EKG: Attestation: I personally reviewed and interpreted this EKG as follows: Interpretation: Sinus Rhythm (EKG is normal. Ventricular is 98. OR interval is 164 ms. QS duration 94 ms. QT duration 324 ms. [place] is normal.) Discharge Plan Dx/Rx/DC Orders Clinical Impression: Acute respiratory failure with hypoxia, History of asthma, CHI (closed head injury), Slurred speech, Vertigo Disposition Disposition: Acute Care [facility]
[2022-03-28 12:01] LABS: Absolute Lymphocyte Count 0.41 X10^3/uL (0.83-4.51); Absolute Neutrophil Count 2.5 X10^3/uL (2.0-7.7); Basophil# 0.01 X10^3/uL; Basophil% 0.3 % (0-1); Eosinophil# 0.01 X10^3/uL; Eosinophils% 0.3 % (0-5); Hematocrit 36.1 % (40-54); Hemoglobin 12.2 g/dL (13.0-16.5); Lymphocyte # 0.41 X10^3/ul (0.83-4.51); Lymphocyte % 10.5 % (19-41); Mean Corp Hgb Conc 33.8 g/dL (32-36); Mean Corpuscular Hgb 31.8 pg (27.0-32.0); Monocyte# 1.02 X10^3/uL; NRBC Flagged by Analyzer 0 % (0-5); Neutrophil # 2.46 X10^3/uL (2.7-7.7); Neutrophil % 62.6 % (47-70); POSITIVE DIFFERENTIAL YES; Platelet Count 160 K/mm3 (150-450); RBC Distribution Width CV 12.2 % (11.6-14.6); RBC Distribution Width SD 42.5 fl (35.1-43.9); Red Blood Count 3.84 M/mm3 (4.6-6.2); White Blood Count 3.9 K/mm3 (4.4-11.0)
[2022-03-28 12:04] LABS: Differential Indicated SCAN CRITERIA MET
[2022-03-28 12:18] LABS: ALB/GLOB Ratio 1.2 RATIO (0.9-2.4); AST(SGOT) 40 U/L (15-37); Alanine Aminotransfer ALT/SGPT 56 U/L (16-61); Albumin, Serum 3.6 g/dL (3.2-5.0); Alkaline Phosphatase 39 U/L (45-117); Anion Gap 6 (5-15); BUN 12 mg/dL (7-18); BUN/Creat Ratio 10.5 RATIO (10-20); Calcium,Total 9.1 mg/dL (8.5-10.1); Chloride 100 mmol/L (98-107); Creatinine, Serum 1.14 mg/dL (0.70-1.30); EST Glomerular Filtration Rate 67 mL/min (>60); Est Glom Filt Rate - Afr Amer 81 mL/min (>60); Estimated Creatinine Clearance 49.45 ml/min; Globulin 3.1 g/dL (2.2-4.2); Glucose 148 mg/dL (74-106); Potassium 3.9 mmol/L (3.5-5.1); Protein, Total 6.7 g/dL (6.4-8.2); Sodium Level 134 mmol/L (136-145)
--- NOTE | 2022-03-28 12:24 | RAD_ITS ---
STUDY: X-RAY CHEST REASON FOR EXAM: Male, 76 years old. Fever, body aches and cough. TECHNIQUE: Single AP portable view of the chest. COMPARISON: None. FINDINGS: EKG electrodes are seen. Hyperinflation. The lungs are clear. There is no demonstrated pleural abnormality. Normal size heart. Normal mediastinum and janet. Normal visualized pulmonary arteries. There is atherosclerotic calcification of the aortic arch with tortuosity. Normal visualized thoracic spine. Normal visualized ribs, clavicles, and shoulders. Surgical clips are seen in the epigastric region. RAD/Chest 1 View (Portable) IMPRESSION: No acute abnormality is seen. Electronically Signed: Benson Bailey MD at 12:54 EDT ,
[2022-03-28 12:50] LABS: Lactic Acid 0.8 mmol/L (0.4-1.9)
[2022-03-28] MEDS: dexAMETHasone 4 MG Tablet 6 MG PO (13:03)
--- NOTE | 2022-03-28 13:14 | MRI_ITS ---
HISTORY: TIA. TECHNIQUE: Multiplanar and multisequence MR images of the brain were obtained without contrast. 290 images. COMPARISON: CT earlier same day. FINDINGS: BRAIN PARENCHYMA: Mild bilateral cerebral white matter changes. No abnormal focus of restricted diffusion. No acute intracranial hemorrhage identified. CSF SPACES: Mild generalized volume loss. No significant midline shift or other mass effect.No extra-axial fluid collection. VASCULAR SYSTEM: Major intracranial flow voids are maintained. PARANASAL SINUSES AND MASTOID AIR CELLS: No significant air fluid levels. Homogeneous T2 hyperintense and circumscribed 1 x 4 cm cystic lesion in the right nasal cavity extending into the nasopharynx. ORBITS: Symmetric contents. MRI/Brain without Contrast IMPRESSION: No evidence for acute infarct, acute intracranial hemorrhage, or significant mass effect. Mild chronic small vessel ischemic gliosis. 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 Electronically Signed: Supriya Mcleod MD at 16:49 EDT ,
[2022-03-28 13:51] LABS: Thyroid Stim Hormone (TSH) 0.51 uIU/mL (0.358-3.74)
--- NOTE | 2022-03-28 14:34 | PCM.HP.STD ---
Documented by User: Loni Orosco NP, BELTING AND WEBBING INSPECTOR-C 03/28/22 14:57 HPI - General General Date of Admission: 03/28/22 Date of Service: 03/28/22 Chief Complaint: Weakness, speech changes. HPI Narrative HIRA ALVAREZ, is a 76 M who presents to the emergency room due to weakness and altered speech. Patient states his tested positive for COVID 2 days ago. Last night he states he had a rough night and had difficulty sleeping. Reported mild nausea. He decided to get COVID tested himself today due to exposure. Upon getting out of the car in the parking lot he states his legs became weak and he had difficulty walking. He states he fell to the ground and was not able to get back up. He states his was with him and noticed slurred speech. He states the episode lasted only a few minutes however he was then unable to get up off the ground. He denies any ongoing neurologic symptoms or focal deficits. He reports intermittent dry cough. Denies fever, chills. Denies shortness of breath. Denies other URI symptoms. He reports he is vaccinated with [employer], has not yet received booster. He has a past medical history of type 2 diabetes mellitus, hypertension, hyperlipidemia, asthma. [facility] Medical History (Updated 03/28/22 @ 12:[address] Sanju Do MD) Asthma Diabetes mellitus High blood pressure High cholesterol Home Medications atorvastatin 10 mg tablet 10 mg PO QHS cholesterol lowering 08/12/15 [History Last Taken 03/27/22] albuterol sulfate 90 mcg/actuation aerosol inhaler (ProAir HFA) 2 puff inhalation Q4H PRN PRN Asthma 01/06/19 [History Last Taken 03/28/22] fluticasone 100 mcg-salmeterol 50 mcg/dose blistr powdr for inhalation (Advair Diskus) 1 ea IH BID breathing 01/06/19 [History Last Taken 03/27/22] glimepiride 2 mg tablet 1 mg PO QHS blood sugar 01/06/19 [History Last Taken 03/27/22] metformin 500 mg tablet 500 mg PO BIDCM blood sugar 01/06/19 [History Last Taken 03/27/22] orphenadrine citrate 100 mg tablet,extended release 100 mg PO Q12H PRN muscle spasm #14 tabs 10/17/21 [Rx Last Taken Unknown] amlodipine 10 mg tablet 10 mg PO DAILY blood pressure 03/28/22 [History Last Taken 03/27/22] hydrochlorothiazide 25 mg tablet 25 mg PO DAILY blood pressure 03/28/22 [History Last Taken 03/28/22] lisinopril 20 mg-hydrochlorothiazide 25 mg tablet 1 tab PO DAILY blood pressure 03/28/22 [History Last Taken Unknown] Allergy/AdvReac Type Severity Reaction Status Date / Time No Known Allergies Allergy Verified 10/17/21 06:02 Family History (Updated 03/28/22 @ 14:50 by Loni Orosco NP, BELTING AND WEBBING INSPECTOR-C) Father Cancer Mother CAD (coronary artery disease) Surgical History (Updated 03/28/22 @ 14:50 by Loni Orosco NP, BELTING AND WEBBING INSPECTOR-C) H/O hernia repair Social History (Updated 03/28/22 @ 14:49 by Loni Orosco NP, BELTING AND WEBBING INSPECTOR-C) household members: spouse Smoking Status: Former smoker alcohol intake: never substance use type: does not use ROS Constitutional Constitutional: Reports fatigue and weakness; Denies change in weight, chills or fever(s) Cardiovascular Cardiovascular: Denies chest pain, edema, lightheadedness, palpitations or syncope Respiratory/Chest Respiratory/Chest: Reports cough; Denies dyspnea, productive cough, shortness of breath at rest, shortness of breath with exertion or wheezing Gastrointestinal Gastrointestinal: Reports nausea; Denies abdominal pain, constipation, diarrhea or vomiting Genitourinary Genitourinary: Denies burning urination, difficulty urinating, dysuria, hematuria, urinary frequency, urinary incontinence or urinary urgency Musculoskeletal Musculoskeletal: Denies back pain, joint pain or muscle weakness Integumentary Integumentary: Denies erythema, lesions, rash or wounds Neurologic Neurologic: Reports abnormal speech; Denies confusion, dizziness, focal weakness, numbness, paresthesias, seizure-like activity or syncope Psychiatric Psychiatric: Denies anxiety or depression Hematologic/Lymphatic Hematologic/Lymphatic: Denies anemia, easy bleeding or easy bruising Allergic/Immunologic Allergic/Immunologic: Denies hives or asthma Vital Signs Vital Signs Vital Signs: 03/28/22 10:26 03/28/22 10:30 03/28/22 10:32 Temperature 102.7 F H 102.7 F H Temperature Source Oral Oral Pulse Rate 108 H 111 H Respiratory Rate 18 14 Respiratory Pattern Normal Blood Pressure 115/93 H 128/72 H Blood Pressure Mean 100 90 Blood Pressure Source Blood Pressure Position Blood Pressure Location Pulse Ox 94 94 Oxygen Delivery Method Room Air Room Air Oxygen Flow Rate (L/min) 03/28/22 10:42 03/28/22 10:42 03/28/22 10:55 Temperature Temperature Source Pulse Rate Respiratory Rate Respiratory Pattern Blood Pressure Blood Pressure Mean Blood Pressure Source Blood Pressure Position Blood Pressure Location Pulse Ox 87 94 97 Oxygen Delivery Method Room Air Nasal Cannula Nasal Cannula Oxygen Flow Rate (L/min) 2 2 03/28/22 12:25 03/28/22 12:25 03/28/22 13:41 Temperature 99.4 F H 99.4 F H 99.3 F H Temperature Source Oral Oral Oral Pulse Rate 86 86 84 Respiratory Rate 17 17 19 H Respiratory Pattern Blood Pressure 123/71 H 123/71 H 126/65 H Blood Pressure Mean 88 88 85 Blood Pressure Source Blood Pressure Position Blood Pressure Location Pulse Ox 98 98 97 Oxygen Delivery Method Nasal Cannula Nasal Cannula Nasal Cannula Oxygen Flow Rate (L/min) 2 2 2 03/28/22 14:15 Temperature 99.1 F Temperature Source Oral Pulse Rate 83 Respiratory Rate 16 Respiratory Pattern Blood Pressure 115/60 Blood Pressure Mean 78 Blood Pressure Source Monitor Blood Pressure Position Sitting Blood Pressure Location Left Arm Pulse Ox 97 Oxygen Delivery Method Room Air Oxygen Flow Rate (L/min) Weight Weight: 156 lb 4.924 oz Body Mass Index (BMI) 25.9 Physical Exam Const alert and oriented x3 HEENT normocephalic and moist oral mucous membranes Eyes PERRL, EOMs intact bilaterally and conjunctivae normal Neck no lymphadenopathy Resp normal respiratory effort and clear to auscultation bilaterally Cardio regular rate, regular rhythm and no murmurs Peripheral Pulses: pulses 2+ throughout GI normal to inspection, nondistended, normoactive bowel sounds, non-tender and non-distended Extremity normal to inspection Skin no rashes or lesions noted Lesions: no lesions Rashes: no rashes Trauma: no lacerations or abrasions Neuro CN's II-XII intact bilaterally, no focal motor deficits, no sensory deficits noted and deep tendon reflexes 2+ bilaterally Psych mental status grossly normal and affect normal Results Lab / Micro Data Result Diagrams: 03/28/22 11:20 03/28/22 11:20 Labs: Laboratory Results - last 24 hr 03/28/22 11:20: WBC 3.9 L, RBC 3.84 L, Hgb 12.2 L, Hct 36.1 L, MCV 94.0, MCH 31.8, MCHC 33.8, RDW Std Deviation 42.5, RDW Coeff of Joellen 12.2, Plt Count 160, MPV 11.0, Immature Gran % (Auto) 0.300, Neut % (Auto) 62.6, Lymph % (Auto) 10.5 L, [place] % (Auto) 26.0 H, Eos % (Auto) 0.3, Baso % (Auto) 0.3, Absolute Neuts (auto) 2.5, Absolute Lymphs (auto) 0.41 L, Nucleated RBC % 0, Differential Comment COMMENT, Diff Path Review December03/28/22 11:20: Sodium 134 L, Potassium 3.9, Chloride 100, Carbon Dioxide 28.0, Anion Gap 6, BUN 12, Creatinine 1.14, Estim Creat Clear Calc 49.45, Est GFR (MDRD) Af Amer 81, Est GFR (MDRD) Non-Af 67, BUN/Creatinine Ratio 10.5, Glucose 148 H, Calcium 9.1, Total Bilirubin 0.40, AST 40 H, ALT 56, Alkaline Phosphatase 39 L, Total Protein 6.7, Albumin 3.6, Globulin 3.1, Albumin/Globulin Ratio 1.2 03/28/22 11:20: Lactic Acid 0.8 03/28/22 11:20: TSH 0.51 Micro: Microbiology 03/28/22 11:20 Nasal Secretion SARS-CoV-2 & FLU Antigen (Rapid) - Final SARS-CoV-2 (COVID 19) Radiology Impression Brain CT 03/28/22 10:47 IMPRESSION: Chronic involutional changes of the brain. Soft tissue prominence in the posterior right nasal fossa extending into the nasopharynx. Clinical correlation is recommended. Electronically Signed: Benson Bailey MD at 12:52 EDT , Chest X-Ray 03/28/22 12:24 IMPRESSION: No acute abnormality is seen. Electronically Signed: Benson Bailey MD at 12:54 EDT , Assessment & Plan Assessment/Plan (1) Slurred speech: PLAN: Plan 1. TIA-transient weakness, slurred speech. Aspirin, statin. Brain CT unremarkable. Obtain MRI of brain, MRA of head and neck. [facility]. PT/OT/ST. 2. Acute hypoxia secondary to [id number] x-ray unremarkable. Oxygen noted to be 87% on room air on admission. Requiring 2 L nasal cannula. Initiated on remdesivir. Isolation precautions per protocol. 3. Type 2 diabetes mellitus-hold metformin. Accu-Cheks with sliding scale insulin. 4. Hypertension-permissive given #1. Hold lisinopril/HCTZ, amlodipine pending MRI. 5. Hyperlipidemia-continue statin. Fasting lipid panel in a.m. 6. Chronic asthma-as needed albuterol aerosol. DVT prophylaxis- Lovenox sc This patient was seen by Loni Orosco NP-Isidoro under the supervision of Dr. Frances. Time spent examining patient, reviewing data and subsequent management of care: 28 minutes Documented by User: Dr. Kee Frances DO 03/28/22 19:00 HPI - General General Date of Admission: 03/28/22 [facility] Medical History (Updated 03/28/22 @ 12:[address] Sanju Do MD) Asthma Diabetes mellitus High blood pressure High cholesterol Home Medications atorvastatin 10 mg tablet 10 mg PO QHS cholesterol lowering 08/12/15 [History Last Taken 03/27/22] albuterol sulfate 90 mcg/actuation aerosol inhaler (ProAir HFA) 2 puff inhalation Q4H PRN PRN Asthma 01/06/19 [History Last Taken 03/28/22] fluticasone 100 mcg-salmeterol 50 mcg/dose blistr powdr for inhalation (Advair Diskus) 1 ea IH BID breathing 01/06/19 [History Last Taken 03/27/22] glimepiride 2 mg tablet 1 mg PO QHS blood sugar 01/06/19 [History Last Taken 03/27/22] metformin 500 mg tablet 500 mg PO BIDCM blood sugar 01/06/19 [History Last Taken 03/27/22] orphenadrine citrate 100 mg tablet,extended release 100 mg PO Q12H PRN muscle spasm #14 tabs 10/17/21 [Rx Last Taken Unknown] amlodipine 10 mg tablet 10 mg PO DAILY blood pressure 03/28/22 [History Last Taken 03/27/22] hydrochlorothiazide 25 mg tablet 25 mg PO DAILY blood pressure 03/28/22 [History Last Taken 03/28/22] lisinopril 20 mg-hydrochlorothiazide 25 mg tablet 1 tab PO DAILY blood pressure 03/28/22 [History Last Taken Unknown] Allergy/AdvReac Type Severity Reaction Status Date / Time No Known Allergies Allergy Verified 10/17/21 06:02 Family History (Updated 03/28/22 @ 14:50 by Loni Orosco BELTING AND WEBBING INSPECTOR, [employer]BBING INSPECTOR-C) Father Cancer Mother CAD (coronary artery disease) Surgical History (Updated 03/28/22 @ 14:50 by Loni Orosco BELTING AND WEBBING INSPECTOR, [employer]TING [employer] WEBBING INSPECTOR-C) H/O hernia repair Social History (Updated 03/28/22 @ 14:49 by Loni Orosco BELTING AND WEBBING INSPECTOR, BELTING AND WEBBING INSPECTOR-C) household members: spouse Smoking Status: Former smoker alcohol intake: never substance use type: does not use Results Lab / Micro Data Result Diagrams: 03/28/22 11:20 03/28/22 11:20 Assessment & Plan Assessment/Plan (1) Slurred speech: Charges/Coding Addendum Addendum: Patient was seen and examined independently of Loni Orosco today, he came to the ER after having an episode of dizziness and speech difficulties which lasted about 5 minutes. Patient was on his way to get a COVID test done in his physician's office, his was recently diagnosed with COVID-19. Work-up in the emergency room included a CT of the brain which was unremarkable, patient was noted to be mildly hypoxic, this corrected with the administration of low-flow oxygen at 2 L. Patient's chest x-ray was unremarkable, patient's COVID-19 test was positive. Patient's NIH score was 0. On examination he appeared in good health and spirits. Vital signs as documented. Skin warm and dry and without overt rashes. Neck without JVD, neck was supple, trachea midline, thyroid was normal. Lungs clear bilaterally, normal air movement was noted. Heart exam notable for regular rhythm, normal sounds and absence of murmurs, rubs or gallops. Abdomen unremarkable and without evidence of organomegaly, masses, or abdominal aortic enlargement. Bowel sounds are present, abdomen is not distended. Extremities nonedematous, no cyanosis was noted, no clubbing was noted. Neuro: Cranial nerves II through XII are grossly intact, no focal motor deficits were noted, sensation to light touch and pinprick intact, motor exam 5/5 throughout. Psych: Patient is alert and oriented x3, he does not appear anxious or depressed, he does not appear agitated. Impression: #1 COVID-19 infection with hypoxia-patient will be admitted to PCU, he will be placed on remdesivir and Decadron, I will place him on aerosol treatments, pulse ox will be monitored. Patient was vaccinated but not boosted. #2 brief episode of dizziness and slurred speech-etiology unclear at this time-patient will undergo an MRI as well as an MRI of the head and neck, if these tests are negative, the episode may have been caused by his hypoxia and COVID-19 infection. #3 asthma by history-patient will be placed on as needed albuterol treatments, he uses Advair at home, while he is in the hospital presently I will not put him on Pulmicort aerosols due to the fact he will be on Decadron for his COVID. #4 type 2 diabetes-blood sugars will be monitored, sliding scale insulin will be used #5 essential hypertension-if patient's MRI study is negative, he will be placed back on his blood pressure medication #6 hyperlipidemia-patient will remain on statin I have reviewed Loni Orosco's history and physical including her medical assessment and plan of care and with the above additions endorse it. Total clinical time spent by myself addressing the patient's medical issues, reviewing the data, and collaborating with patient's care team: 45 minutes Visit Charges Inpatient E&M: 59418 Subs Hosp L3
--- NOTE | 2022-03-28 14:56 | MRI_ITS ---
HISTORY: TIA. TECHNIQUE: Routine [place]/brain 3D time of flight MR angiogram protocol was performed. 3D reconstructions were reviewed. IV Contrast Dosage and Agent: None. 195images. COMPARISON: None FINDINGS: ICAs: No significant stenosis at the intracranial/visualized segments. ACAs: No significant stenosis at the visualized segments. MCAs: No significant stenosis at the visualized segments. transportation worker: No significant stenosis at the visualized segments. BASILAR ARTERY: No significant stenosis. VERTEBRAL ARTERIES: No significant stenosis at the intradural/visualized segments. No evidence of intracranial aneurysm or vascular malformation. MRI/MRA Head ONLY without Contrast IMPRESSION: No evidence for large vessel occlusion or other focal vascular abnormality in the [place] region. Electronically Signed: Supriya Mcleod MD at 16:43 EDT ,
--- NOTE | 2022-03-28 15:14 | MRI_ITS ---
HISTORY: TIA. TECHNIQUE: Routine [id number] carotid MR angiogram protocol was performed without contrast. 3D reconstructions were reviewed. NASCET criteria using the distal ICAs for comparison were used for evaluation of stenoses. IV Contrast Dosage and Agent: None. 547 images. COMPARISON: None. FINDINGS: Limited evaluation due to motion artifact. AORTIC ARCH AND BRANCHES: Excluded from [id number]. RIGHT CCA: No occlusion. RIGHT ICA: Up to 50% stenosis at the origin. No occlusion. LEFT CCA: No occlusion. LEFT ICA: Mild stenosis at the origin. RIGHT VERTEBRAL ARTERY: Artifact limiting evaluation for dissection. No occlusion. LEFT VERTEBRAL ARTERY: Hypoplastic. No occlusion, significant stenosis, or dissection. MRI/MRA Neck without Contrast IMPRESSION: Limited evaluation due to motion artifact. 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 Electronically Signed: Supriya Mcleod MD at 16:40 EDT ,
[2022-03-28 15:19] LABS: Hemoglobin A1c 7.4 % (3.8-5.6)
[2022-03-28] MEDS: Remdesivir 200 MG IV x1 (Inital Dose)-All Patients 125 MG IV (16:44)
[2022-03-28] MEDS: Insulin Lispro 100 UNIT/ML INSULN.PEN SC ×2 (16:45→21:54)
[2022-03-28 17:21] LABS: Bedside Glucose 197 mg/dL (74-106)
[2022-03-28 18:02] LABS: Alkaline Phosphatase 40 U/L (45-117)
[2022-03-28] MEDS: Atorvastatin Calcium 80 MG Tablet PO (21:51)
[2022-03-28 22:45] LABS: Bedside Glucose 263 mg/dL (74-106)
[2022-03-29] VITALS (16 sets, daily range): BP systolic 110–127; BP diastolic 58–71; PULSE 75–96; RESP 14–21; TEMP 36.6–37.4; O2SAT 83–99; BMI 25.9
[2022-03-29] MEDS: Albuterol 2.5 MG/3 ML VIAL.NEB. INHALATION ×4 (01:23→19:29)
[2022-03-29 07:32] LABS: Hematocrit 38.3 % (40-54); Hemoglobin 12.6 g/dL (13.0-16.5); Mean Corp Hgb Conc 32.9 g/dL (32-36); Mean Corpuscular Hgb 31.2 pg (27.0-32.0); Mean Corpuscular Volume 94.8 fL (80-94); Mean Platelet Vol. 10.3 fl (6.2-12.0); Platelet Count 193 K/mm3 (150-450); RBC Distribution Width CV 12.1 % (11.6-14.6); RBC Distribution Width SD 42.3 fl (35.1-43.9); Red Blood Count 4.04 M/mm3 (4.6-6.2); White Blood Count 3.3 K/mm3 (4.4-11.0)
[2022-03-29 08:04] LABS: AST(SGOT) 39 U/L (15-37); Alanine Aminotransfer ALT/SGPT 57 U/L (16-61); Albumin, Serum 3.5 g/dL (3.2-5.0); Alkaline Phosphatase 37 U/L (45-117); Anion Gap 6 (5-15); BUN 16 mg/dL (7-18); BUN/Creat Ratio 14.5 RATIO (10-20); Chloride 102 mmol/L (98-107); Cholesterol 114 mg/dL (200); EST Glomerular Filtration Rate 69 mL/min (>60); Est Glom Filt Rate - Afr Amer 84 mL/min (>60); Estimated Creatinine Clearance 51.25 ml/min; Globulin 3.5 g/dL (2.2-4.2); Glucose 146 mg/dL (74-106); High Density Lipoprotein 38 mg/dL; Potassium 4.2 mmol/L (3.5-5.1); Sodium Level 136 mmol/L (136-145); Triglycerides 58 mg/dL; Very Low Density Lipoprotein 12 mg/dL (5-40)
[2022-03-29] MEDS: dexAMETHasone 4 MG Tablet 6 MG PO (09:19)
[2022-03-29] MEDS: Aspirin 81 MG TAB.CHEW PO (09:20)
[2022-03-29] MEDS: Glimepiride 1 MG Tablet PO (09:20)
[2022-03-29] MEDS: Enoxaparin 40 MG/0.4 ML Syringe SC (09:20)
--- NOTE | 2022-03-29 10:00 | CASEMGMT ---
SAM KING assessment: Initial transition planning/care coordination assessment. SAM KING introduced self and role at [facility], pt voices understanding and consents to assessment. Pt is sitting up in bed in no distress on 3L nc. Pt is A/Ox4 and answers all questions appropriately.? Care providers, pharmacy,?and demographics verified. ? Presentation: Pt fell on way to urgent care for COVID test as tested positive 03/25-pt c/o fever/body aches/cough/nausea Admitting dx: COVID, resp failure, vertigo PCP: Anahy Specialists: None Preferred Pharmacy: [facility] Insurance: [employer] Prescription Benefit:?MMOMCR Living Will/HPOA: Pt does not have LW/HPOA and declines AD info at this time. LNOK: Ольга Gonzalez, Living Arrangements: Pt lives with in 1 story home and states no concerns at home. Pt is independent with ADL's. Transportation: Pt drives self and states no transportation concerns. DME/HHC: Pt has no current DME or need for any further DME. Pt states no preference for DME company, if qualifies for home oxygen at discharge. Pt to be provided pulse ox by [facility] on discharge with instructions for use. Pt states no hx of HHC or SNF in past. Pt states no concerns with going home at time of discharge. Pt is retired. Pt states does not smoke cigarettes or drink ETOH. Pt voices no further concerns/needs. CM to follow for any further discharge planning/needs. Advised pt to ask for CM if any further questions/concerns/needs arise, voices understanding. Pt Goal: Home Plan: Home, pending home oxygen testing. [place] SAM KING
[2022-03-29 10:16] LABS: Bedside Glucose 135 mg/dL (74-106)
--- NOTE | 2022-03-29 11:59 | PN.HOSP_ITS ---
Documented by User: Loin Orosco NP, TRANSCRIBING OPERATOR HEAD-C 03/29/22 12:47 Subjective Subjective Patient seen and examined. Remains on supplemental oxygen. Denies shortness of breath. Denies URI symptoms. Denies neurologic symptoms or focal deficits. Stroke ruled out. Objective Data Objective Data Vital Signs: Vital Signs Temp Pulse Resp BP Pulse Ox O2 Del Method O2 Flow Rate 98.6 F 87 18 118/61 90 Room Air 3 03/29/22 09:24 03/29/22 09:24 03/29/22 09:24 03/29/22 09:24 03/29/22 09:35 03/29/22 09:35 03/29/22 09:35 Oxygen Flow Rate (L/min) [ 4 AMBULATING with Oxygen #2] Oxygen Flow Rate (L/min) [ 3 AMBULATING with Oxygen #1] Oxygen Flow Rate (L/min) 3 Oxygen Delivery Method Room Air Weight: 156 lb 4.924 oz Body Mass Index (BMI) 25.9 Intake & Output: Intake and Output for Last 24 Hours 03/27/22 03/28/22 03/29/22 23:59 23:59 23:59 Intake Total 1730 / 1730 Balance 1730 / 1730 Lab / Micro Data Result Diagrams: 03/29/22 07:20 03/29/22 07:20 Labs: Laboratory Results - last 24 hr 03/28/22 11:20: WBC 3.9 L, RBC 3.84 L, Hgb 12.2 L, Hct 36.1 L, MCV 94.0, MCH 31.8, MCHC 33.8, RDW Std Deviation 42.5, RDW Coeff of Joellen 12.2, Plt Count 160, MPV 11.0, Immature Gran % (Auto) 0.300, Neut % (Auto) 62.6, Lymph % (Auto) 10.5 L, [place] % (Auto) 26.0 H, Eos % (Auto) 0.3, Baso % (Auto) 0.3, Absolute Neuts (auto) 2.5, Absolute Lymphs (auto) 0.41 L, Nucleated RBC % 0, Differential Comment COMMENT, Diff Path Review December03/28/22 11:20: Sodium 134 L, Potassium 3.9, Chloride 100, Carbon Dioxide 28.0, Anion Gap 6, BUN 12, Creatinine 1.14, Estim Creat Clear Calc 49.45, Est GFR (MDRD) Af Amer 81, Est GFR (MDRD) Non-Af 67, BUN/Creatinine Ratio 10.5, Glucose 148 H, Calcium 9.1, Total Bilirubin 0.40, AST 40 H, ALT 56, Alkaline Phosphatase 39 L, Total Protein 6.7, Albumin 3.6, Globulin 3.1, Albumin/Globulin Ratio 1.2 03/28/22 11:20: Lactic Acid 0.8 03/28/22 11:20: TSH 0.51 03/28/22 11:20: Hemoglobin A1c 7.4 H 03/28/22 16:36: POC Glucose 197 H 03/28/22 17:30: Alkaline Phosphatase 40 L 03/28/22 21:53: POC Glucose 263 H 03/29/22 06:31: POC Glucose 135 H 03/29/22 07:20: Sodium 136, Potassium 4.2, Chloride 102, Carbon Dioxide 28.0, Anion Gap 6, BUN 16, Creatinine 1.10, Estim Creat Clear Calc 51.25, Est GFR (MDRD) Af Amer 84, Est GFR (MDRD) Non-Af 69, BUN/Creatinine Ratio 14.5, Glucose 146 H, Calcium 9.0, Total Bilirubin 0.30, AST 39 H, ALT 57, Alkaline Phosphatase 37 L, Total Protein 7.0, Albumin 3.5, Globulin 3.5, Albumin/Globulin Ratio 1.0, Triglycerides 58, Cholesterol 114, LDL Cholesterol 64, VLDL Cholesterol 12, HDL Cholesterol 38 L 03/29/22 07:20: WBC 3.3 L, RBC 4.04 L, Hgb 12.6 L, Hct 38.3 L, MCV 94.8 H, MCH 31.2, MCHC 32.9, RDW Std Deviation 42.3, RDW Coeff of Joellen 12.1, Plt Count 193, MPV 10.3 Micro: Microbiology 03/28/22 11:20 Nasal Secretion SARS-CoV-2 & FLU Antigen (Rapid) - Final SARS-CoV-2 (COVID 19) Radiography Diagnostic Testing: Radiology Impression Brain CT 03/28/22 10:47 IMPRESSION: Chronic involutional changes of the brain. Soft tissue prominence in the posterior right nasal fossa extending into the nasopharynx. Clinical correlation is recommended. Electronically Signed: Benson Bailey MD at 12:52 EDT , Chest X-Ray 03/28/22 12:24 IMPRESSION: No acute abnormality is seen. Electronically Signed: Benson Bailey MD at 12:54 EDT , Brain MRI 03/28/22 13:14 IMPRESSION: No evidence for acute infarct, acute intracranial hemorrhage, or significant mass effect. Mild chronic small vessel ischemic gliosis. 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 Electronically Signed: Supriya Mcleod MD at 16:49 EDT , Head MRA 03/28/22 14:56 IMPRESSION: No evidence for large vessel occlusion or other focal vascular abnormality in the [place] of [place] region. Electronically Signed: Supriya Mcleod MD at 16:43 EDT , Neck MRA 03/28/22 15:14 IMPRESSION: Limited evaluation due to motion artifact. 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 Electronically Signed: Supriya Mcleod MD at 16:40 EDT , Physical Exam Const alert, oriented x3 and no apparent distress Orientation / Consciousness: awake, oriented to person, oriented to place and oriented to time HEENT normocephalic and moist oral mucous membranes Eyes PERRL, EOMs intact bilaterally and conjunctivae normal Neck no lymphadenopathy Resp normal respiratory effort and clear to auscultation bilaterally Cardio regular rate, regular rhythm and no murmurs Peripheral Pulses: pulses 2+ throughout GI normal to inspection, nondistended, normoactive bowel sounds, non-tender and non-distended Extremity normal to inspection Skin no rashes or lesions noted Lesions: no lesions Rashes: no rashes Trauma: no lacerations or abrasions Neuro CN's II-XII intact bilaterally, no focal motor deficits, no sensory deficits noted and deep tendon reflexes 2+ bilaterally Psych mental status grossly normal and affect normal Assessment & Plan Assessment/Plan (1) Acute respiratory failure with hypoxia: PLAN: Plan 1.?TIA-CVA ruled out. Continue aspirin, statin.? Brain CT unremarkable.? MRI of brain without acute infarct. MRA with no evidence of large vessel occlusion. No recurrent symptoms or residual deficits. 2.? Acute hypoxia secondary to [id number] x-ray unremarkable.? Oxygen noted to be 87% on room air on admission.? Requiring 2-3 L nasal cannula.? Initiated on remdesivir.? Isolation precautions per protocol. 3. Type 2 diabetes mellitus-hold metformin.? Accu-Cheks with sliding scale insulin. 4. Hypertension-permissive given #1.? Continue lisinopril/HCTZ, amlodipine. 5. Hyperlipidemia-continue statin.? 6. Chronic asthma-as needed albuterol aerosol. DVT prophylaxis- Lovenox sc This patient was seen by MAYCO Kidd under the supervision of Dr. Frances. Time spent examining patient, reviewing data and subsequent management of care: 14 minutes Documented by User: Dr. Kee Frances, 03/29/22 18:24 Objective Data Lab / Micro Data Result Diagrams: 03/29/22 07:20 03/29/22 07:20 Assessment & Plan Assessment/Plan (1) Acute respiratory failure with hypoxia: Charges/Coding Addendum Addendum: Patient was seen and examined today independently of Loni Orosco, he is still requiring supplemental oxygen at this time. Patient does not appear short of breath at rest. On examination he appeared in good health and spirits. Vital signs as documented. Skin warm and dry and without overt rashes. Neck without JVD, neck was supple, trachea midline, thyroid was normal. Lungs clear bilaterally, normal air movement was noted. Heart exam notable for regular rhythm, normal sounds and absence of murmurs, rubs or gallops. Abdomen unremarkable and without evidence of organomegaly, masses, or abdominal aortic enlargement. Bowel sounds are present, abdomen is not distended. Extremities nonedematous, no cyanosis was noted, no clubbing was noted. Neuro: Cranial nerves II through XII are grossly intact, no focal motor deficits were noted, sensation to light touch and pi nprick intact, motor exam 5/5 throughout. Psych: Patient is alert and oriented x3, he does not appear anxious or depressed, he does not appear agitated. #1 COVID-19 infection with hypoxia-continue treatment with remdesivir and Decadron #2 brief episode of dizziness and slurred speech-etiology unclear at this time- MRI was negative for CVA #3 asthma by history-patient will be placed on as needed albuterol treatments #4 type 2 diabetes-blood sugars will be monitored, sliding scale insulin will be used #5 essential hypertension-patient's blood pressure medicine is being held at this time due to normal blood pressure #6 hyperlipidemia-patient will remain on statin I have reviewed Loni Orosco's progress note including her medical assessment and plan of care and with the above additions endorse it. Total clinical time spent by myself addressing the patient's medical issues, reviewing the data, and collaborating with patient's care team: 21 minutes Visit Charges Inpatient E&M: 56508 Subs Hosp L3
[2022-03-29] MEDS: Insulin Lispro 100 UNIT/ML INSULN.PEN SC ×3 (12:23→21:31)
[2022-03-29 12:29] LABS: Pathologist Review Reviewed
[2022-03-29] MEDS: 0.9% Saline Lock 10 ML Syringe IV (12:33)
[2022-03-29 12:45] LABS: Bedside Glucose 202 mg/dL (74-106)
[2022-03-29 17:00] LABS: Bedside Glucose 206 mg/dL (74-106)
[2022-03-29 17:00] LABS: Bedside Glucose 251 mg/dL (74-106)
[2022-03-29] MEDS: Atorvastatin Calcium 80 MG Tablet PO (21:31)
[2022-03-29 21:55] LABS: Bedside Glucose 276 mg/dL (74-106)
[2022-03-30] VITALS (7 sets, daily range): BP systolic 120–135; BP diastolic 62–74; PULSE 60–85; RESP 16; TEMP 36.6; O2SAT 95–96; BMI 25.9
[2022-03-30 07:11] LABS: Bedside Glucose 140 mg/dL (74-106)
[2022-03-30] MEDS: Albuterol 2.5 MG/3 ML VIAL.NEB. INHALATION (07:15)
[2022-03-30] MEDS: Glimepiride 1 MG Tablet PO (09:51)
[2022-03-30] MEDS: dexAMETHasone 4 MG Tablet 6 MG PO (09:51)
[2022-03-30] MEDS: Aspirin 81 MG TAB.CHEW PO (09:51)
[2022-03-30] MEDS: Enoxaparin 40 MG/0.4 ML Syringe SC (09:51)
[2022-03-30] MEDS: Insulin Lispro 100 UNIT/ML INSULN.PEN SC (11:32)
--- NOTE | 2022-03-30 11:35 | DCINST_ITS ---
Discharge Instructions Diet Discharge Diet: No restrictions Activity Discharge Activity: Return to Normal Activity Dressing / Incision Call your doctor if you observe: Shortness of breath, Dizziness and Chest pain Follow Up Care Test Results: Test results from this visit will be discussed in further detail at your follow- up appointment, if applicable. Discharge Plan Admission Admit Date/Time: 03/28/22 13:06 Primary Reason for Your Visit: Covid 19 with hypoxia Attending Provider: Kee Frances Primary Care Provider: Adriane Higginbotham Instructions Additional Instructions / Restrictions: Recommended quarantine for 7 days. Discharge Orders/Prescriptions Prescriptions: New dexamethasone 4 mg Tablet 6 mg PO DAILY@0800 8 Days Qty: 8 0RF aspirin 81 mg Tablet,Chewable 81 mg PO BREAKFAST 30 Days Qty: 30 0RF Continued atorvastatin 10 MG tablet 10 mg PO QHS Label Comments: cholesterol metformin 500 MG tablet 500 mg PO BIDCM fluticasone propion-salmeterol [Advair Diskus] 1 EACH blister with device 1 ea IH BID albuterol sulfate [ProAir HFA] 1 PUFF inhaler 2 puff inhalation Q4H PRN PRN (Reason: Asthma) glimepiride 2 MG tablet 1 mg PO QHS Label Comments: blood sugar orphenadrine citrate 100 mg tablet extended release 100 mg PO Q12H PRN (Reason: muscle spasm) Qty: 14 0RF amlodipine 10 mg tablet 10 mg PO DAILY Label Comments: TAKE 1 TABLET BY MOUTH ONCE DAILY lisinopril-hydrochlorothiazide 20-25 mg tablet 1 tab PO DAILY Discontinued hydrochlorothiazide 25 mg tablet 25 mg PO DAILY Label Comments: TAKE 1 TABLET BY MOUTH ONCE DAILY Referrals / Follow Up: Adriane Higginbotham MD [Primary Care Provider] - In 1 Week Disposition Disposition (needs filled in before D/C Order can be placed): Home, Self Care
--- NOTE | 2022-03-30 11:40 | PCM.DC.SUM ---
Documented by User: Loni Orosco NP, MELT HOUSE SUPERVISOR-C 03/30/22 11:53 Providers Date of Admission: 03/28/22 Date of Discharge: 03/30/22 Primary Care Physician: Dr. Adriane Higginbotham MD Reason For Visit: COVID-19, RESPIRATORY FAILURE, VERTIGO Diagnosis Discharge Diagnosis (1) Acute respiratory failure with hypoxia: Status: Acute Code(s): J96.01 - Acute respiratory failure with hypoxia Medications at Discharge Home Medications atorvastatin 10 mg tablet 10 mg PO QHS cholesterol lowering 08/12/15 albuterol sulfate 90 mcg/actuation aerosol inhaler (ProAir HFA) 2 puff inhalation Q4H PRN PRN Asthma 01/06/19 fluticasone 100 mcg-salmeterol 50 mcg/dose blistr powdr for inhalation (Advair Diskus) 1 ea IH BID breathing 01/06/19 glimepiride 2 mg tablet 1 mg PO QHS blood sugar 01/06/19 metformin 500 mg tablet 500 mg PO BIDCM blood sugar 01/06/19 orphenadrine citrate 100 mg tablet,extended release 100 mg PO Q12H PRN muscle spasm #14 tabs 10/17/21 amlodipine 10 mg tablet 10 mg PO DAILY blood pressure 03/28/22 lisinopril 20 mg-hydrochlorothiazide 25 mg tablet 1 tab PO DAILY blood pressure 03/28/22 aspirin 81 mg chewable tablet 81 mg PO BREAKFAST 30 days #30 tabs 03/30/22 dexamethasone 4 mg tablet 6 mg PO DAILY@0800 8 days #8 tabs 03/30/22 Hospital Course Operations None Procedures None Summary of Care Provided Hospital Course: Patient is a 76-year-old male admitted 03/28/2022 due to transient weakness and speech changes. 1.?Acute hypoxia secondary to [id number] x-ray unremarkable.? Oxygen noted to be 87% on room air on admission.? Patient received remdesivir during admission. Continue Decadron at discharge to complete course. Patient weaned off of supplemental oxygen. Home oxygen testing completed prior to discharge and patient does not require further oxygen. Follow-up with PCP in 1 week. Instructed on quarantine recommendations. 2. Possible TIA-CVA ruled out.? Continue aspirin, statin.? Brain CT unremarkable.? MRI of brain without acute infarct.? MRA with no evidence of large vessel occlusion.? No recurrent symptoms or residual deficits. Patient's symptoms possibly related to hypoxia however will add baby aspirin at discharge. 3. Type 2 diabetes mellitus-continue home regimen. 4. Hypertension-Continue lisinopril/HCTZ, amlodipine. 5. Hyperlipidemia-continue statin.? 6. Chronic asthma-as needed albuterol inhaler. Physical Exam Const alert, oriented x3 and no apparent distress Orientation / Consciousness: awake, oriented to person, oriented to place and oriented to time HEENT normocephalic and moist oral mucous membranes Eyes PERRL, EOMs intact bilaterally and conjunctivae normal Neck no lymphadenopathy Resp normal respiratory effort and clear to auscultation bilaterally Cardio regular rate, regular rhythm and no murmurs Peripheral Pulses: pulses 2+ throughout GI normal to inspection, nondistended, normoactive bowel sounds, non-tender and non-distended Extremity normal to inspection Skin no rashes or lesions noted Lesions: no lesions Rashes: no rashes Trauma: no lacerations or abrasions Neuro CN's II-XII intact bilaterally, no focal motor deficits, no sensory deficits noted and deep tendon reflexes 2+ bilaterally Psych mental status grossly normal and affect normal This patient was seen by MAYCO Kidd under the supervision of Dr. Frances. Time spent examining patient, reviewing data and subsequent management of care: 26 minutes Weight / BMI Weight Weight: 156 lb 4.924 oz Body Mass Index (BMI) 25.9 ABG / Lab / Microbiology Data Result Diagrams: 03/29/22 07:20 03/29/22 07:20 Laboratory: Laboratory Results - last 24 hr 03/28/22 11:20: Diff Path Review Reviewed 03/29/22 09:16: POC Glucose 206 H 03/29/22 12:20: POC Glucose 202 H 03/29/22 16:36: POC Glucose 251 H 03/29/22 21:30: POC Glucose 276 H 03/30/22 06:47: POC Glucose 140 H Microbiology: Microbiology 03/28/22 11:20 Nasal Secretion SARS-CoV-2 & FLU Antigen (Rapid) - Final SARS-CoV-2 (COVID 19) D/C Instructions Discharge Diet: No restrictions Call your doctor if you observe: Shortness of breath, Dizziness and Chest pain Meaningful Use Info Meaningful Use Diagnoses (Choose all that apply): None applicable Discharge Plan Admission Admit Date/Time: 03/28/22 13:06 Primary Reason for Your Visit: Covid 19 with hypoxia Attending Provider: Kee Frances Primary Care Provider: Adriane Higginbotham Instructions Additional Instructions / Restrictions: Recommended quarantine for 7 days. Discharge Orders/Prescriptions Prescriptions: New dexamethasone 4 mg Tablet 6 mg PO DAILY@0800 8 Days Qty: 8 0RF aspirin 81 mg Tablet,Chewable 81 mg PO BREAKFAST 30 Days Qty: 30 0RF Continued atorvastatin 10 MG tablet 10 mg PO QHS Label Comments: cholesterol metformin 500 MG tablet 500 mg PO BIDCM fluticasone propion-salmeterol [Advair Diskus] 1 EACH blister with device 1 ea IH BID albuterol sulfate [ProAir HFA] 1 PUFF inhaler 2 puff inhalation Q4H PRN PRN (Reason: Asthma) glimepiride 2 MG tablet 1 mg PO QHS Label Comments: blood sugar orphenadrine citrate 100 mg tablet extended release 100 mg PO Q12H PRN (Reason: muscle spasm) Qty: 14 0RF amlodipine 10 mg tablet 10 mg PO DAILY Label Comments: TAKE 1 TABLET BY MOUTH ONCE DAILY lisinopril-hydrochlorothiazide 20-25 mg tablet 1 tab PO DAILY Discontinued hydrochlorothiazide 25 mg tablet 25 mg PO DAILY Label Comments: TAKE 1 TABLET BY MOUTH ONCE DAILY Referrals / Follow Up: Adriane Higginbotham MD [Primary Care Provider] - In 1 Week Disposition Disposition (needs filled in before D/C Order can be placed): Home, Self Care Documented by User: Dr. Kee Frances DO 03/30/22 12:18 Providers Date of Admission: 03/28/22 Reason For Visit: COVID-19, RESPIRATORY FAILURE, VERTIGO Diagnosis Discharge Diagnosis (1) Acute respiratory failure with hypoxia: Status: Acute Code(s): J96.01 - Acute respiratory failure with hypoxia Medications at Discharge Home Medications atorvastatin 10 mg tablet 10 mg PO QHS cholesterol lowering 08/12/15 albuterol sulfate 90 mcg/actuation aerosol inhaler (ProAir HFA) 2 puff inhalation Q4H PRN PRN Asthma 01/06/19 fluticasone 100 mcg-salmeterol 50 mcg/dose blistr powdr for inhalation (Advair Diskus) 1 ea IH BID breathing 01/06/19 glimepiride 2 mg tablet 1 mg PO QHS blood sugar 01/06/19 metformin 500 mg tablet 500 mg PO BIDCM blood sugar 01/06/19 orphenadrine citrate 100 mg tablet,extended release 100 mg PO Q12H PRN muscle spasm #14 tabs 10/17/21 amlodipine 10 mg tablet 10 mg PO DAILY blood pressure 03/28/22 lisinopril 20 mg-hydrochlorothiazide 25 mg tablet 1 tab PO DAILY blood pressure 03/28/22 aspirin 81 mg chewable tablet 81 mg PO BREAKFAST 30 days #30 tabs 03/30/22 dexamethasone 4 mg tablet 6 mg PO DAILY@0800 8 days #8 tabs 03/30/22 ABG / Lab / Microbiology Data Result Diagrams: 03/29/22 07:20 03/29/22 07:20 Discharge Plan Admission Admit Date/Time: 03/28/22 13:06 Primary Reason for Your Visit: Covid 19 with hypoxia Attending Provider: Kee Frances Primary Care Provider: Adriane Higginbotham Instructions Additional Instructions / Restrictions: Recommended quarantine for 7 days. Discharge Orders/Prescriptions Prescriptions: New dexamethasone 4 mg Tablet 6 mg PO DAILY@0800 8 Days Qty: 8 0RF aspirin 81 mg Tablet,Chewable 81 mg PO BREAKFAST 30 Days Qty: 30 0RF Continued atorvastatin 10 MG tablet 10 mg PO QHS Label Comments: cholesterol metformin 500 MG tablet 500 mg PO BIDCM fluticasone propion-salmeterol [Advair Diskus] 1 EACH blister with device 1 ea IH BID albuterol sulfate [ProAir HFA] 1 PUFF inhaler 2 puff inhalation Q4H PRN PRN (Reason: Asthma) glimepiride 2 MG tablet 1 mg PO QHS Label Comments: blood sugar orphenadrine citrate 100 mg tablet extended release 100 mg PO Q12H PRN (Reason: muscle spasm) Qty: 14 0RF amlodipine 10 mg tablet 10 mg PO DAILY Label Comments: TAKE 1 TABLET BY MOUTH ONCE DAILY lisinopril-hydrochlorothiazide 20-25 mg tablet 1 tab PO DAILY Discontinued hydrochlorothiazide 25 mg tablet 25 mg PO DAILY Label Comments: TAKE 1 TABLET BY MOUTH ONCE DAILY Referrals / Follow Up: Adriane Higginbotham MD [Primary Care Provider] - In 1 Week Disposition Disposition (needs filled in before D/C Order can be placed): Home, Self Care Charges/Coding Addendum Addendum: Patient was seen and examined today independently of Loni Orosco, he is now on room air, he does not complain of any shortness of breath. On examination he appeared in good health and spirits. Vital signs as documented. Skin warm and dry and without overt rashes. Neck without JVD, neck was supple, trachea midline, thyroid was normal. Lungs clear bilaterally, normal air movement was noted. Heart exam notable for regular rhythm, normal sounds and absence of murmurs, rubs or gallops. Abdomen unremarkable and without evidence of organomegaly, masses, or abdominal aortic enlargement.? Bowel sounds are present, abdomen is not distended.? Extremities nonedematous, no cyanosis was noted, no clubbing was noted.? Neuro: Cranial nerves II through XII are grossly intact, no focal motor deficits were noted, sensation to light touch and pinprick intact, motor exam 5/5 throughout.? Psych: Patient is alert and oriented x3, he does not appear anxious or depressed, he does not appear agitated. #1 COVID-19 infection with hypoxia-the hypoxia is resolved at this time, patient will be given Decadron to take as an outpatient #2 brief episode of dizziness and slurred speech-etiology unclear at this time-MRI was negative for CVA #3 asthma by history #4 type 2 diabetes #5 essential hypertension #6 hyperlipidemia-patient will remain on statin I have reviewed Loni Orosco's discharge summary including her medical assessment and plan of care and with the above additions endorse it. Total clinical time spent by myself addressing the patient's medical issues, reviewing the data, and collaborating with patient's care team: 20 min Visit Charges Inpatient E&M: 96572 Disch Hosp
[2022-03-30 12:31] LABS: Bedside Glucose 214 mg/dL (74-106)
== END 2022-03-30 14:03 | disposition home or self-care (01) | DRG 179 ==
LOC: ED 12:40 → PCU 13:25
PROVIDERS: Nurse Practitioner Family; Admitting Provider Internal Medicine; Emergency Provider Emergency Medicine; PCP Internal Medicine; Visit Provider Internal Medicine
DX: U07.1 COVID-19 (principal); E11.9 Type 2 diabetes mellitus without complications; I10 Essential (primary) hypertension; E78.00 Pure hypercholesterolemia, unspecified; J45.909 Unspecified asthma, uncomplicated; R42 Dizziness and giddiness; R47.81 Slurred speech; R09.02 Hypoxemia; Z79.84 Long term (current) use of oral hypoglycemic drugs; Z79.82 Long term (current) use of aspirin; Z79.899 Other long term (current) drug therapy; Z87.891 Personal history of nicotine dependence
CPT/HCPCS: 36415; 70450; 70544; 70547; 70551; 71045; 80053; 80061; 82962; 83036; 83605; 84075; 84443; 85025; 85027; 87428; 92610; 93005; 94640; 94762; 99285; J7030; J7050; A4216; J0248

== ENCOUNTER → 2024-09-30 | Outpatient (CLI) | payer MEDICARE, SELFPAY ==
--- NOTE | 2024-09-30 13:18 | MRI_ITS ---
PROCEDURE: SPINE LUMBAR (ROUTINE) REASON FOR EXAM: Low back pain with right lower extremity radiculopathy TECHNIQUE: Noncontrast lumbar spine MRI. Multiplanar multisequence imaging of the lumbar spine performed without IV contrast enhancement. COMPARISON: Correlation with plain film imaging dated 08/06/2024 FINDINGS: There is levocurvature involving the mid lumbar spine. Vertebral body heights are maintained. Multilevel Modic endplate changes most conspicuous at the L4-5 level. No acute lumbar spine fractures or dislocations are identified. There is multilevel disc desiccation and loss of intervertebral disc space height most conspicuous at the L3-4 and L4-5 levels. Conus medullaris terminates posterior to the T12 level. Distal cord and cauda equina appear intact. Paraspinal soft tissues appear intact. Bilateral renal cysts, subcentimeter in size. Disc levels as follows: T11-12, T12-L1: Evaluated on sagittal imaging only. No disc herniation, central spinal or neural foraminal stenosis bilaterally L1-2: No disc herniation, central spinal or neural foraminal stenosis bilaterally L2-3: Paracentral/intraforaminal disc protrusion on the right. Suspect sequestered disc material within the right neural foramen measuring 1.1 cm. Paracentral disc bulge on the left. There is facet arthrosis and minimal ligamentum flavum thickening. Mild narrowing of the lateral recesses. Moderate neural foraminal stenosis on the right. No central spinal or left neural foraminal stenosis. L3-4: Broad-based disc osteophyte complex. Facet arthrosis and ligamentum flavum thickening. Moderate left and mild right narrowing of the lateral recesses. No central spinal stenosis. Mild neural foraminal stenosis on the right. No significant neural foraminal stenosis on the left L4-5: Broad-based disc osteophyte complex. There is facet arthrosis and ligamentum flavum thickening. Moderate narrowing of the lateral recesses. Spinal canal is narrowed to approximately 8.5 mm AP. [id number] left neural foraminal stenosis. No significant neural foraminal stenosis on the right L5-S1: Broad-based disc osteophyte complex. There is facet arthrosis and mild ligamentum flavum thickening. No significant central spinal or left neural foraminal stenosis. Mild neural foraminal stenosis on the right. Sacrum: Visualized upper sacrum and SI joints are unremarkable. MRI/Spine Lumbar (Routine) IMPRESSION: 1. Levocurvature involving the mid lumbar spine. 2. At the L2-3 level, paracentral/intraforaminal disc protrusion on the right, with suspected 1.1 cm right neuroforaminal sequestered disc material. Paracentral disc bulge on the left. Mild narrowing of the lateral recesses and moderate neural foraminal stenosis on the right. No central spinal stenosis. 3. At the L3-4 level, degenerative disc and endplate changes with a broad-based disc osteophyte complex in combination with facet arthrosis and ligamentum flavum thickening results in narrowing of the lateral recesses and mild neural foraminal stenosis on the right. No central spinal stenosis. 4. At the L4-5 level, degenerative disc and endplate changes with a broad-based disc osteophyte complex in combination with facet arthrosis and ligamentum flavum thickening narrows the spinal canal to 8.5 mm A P. There is moderate narrowing of the lateral recesses and [id number] left neural foraminal stenosis. 5. Additional less prominent spondylotic changes, as above Reading [facility]
== END | disposition home or self-care (01) ==
LOC: MRI 13:12
PROVIDERS: PCP Internal Medicine; Referring Provider Student in an Organized Health Care Education/Training Program; Visit Provider Student in an Organized Health Care Education/Training Program
DX: M54.16 Radiculopathy, lumbar region (principal)
CPT/HCPCS: 72148